=== PATIENT | female | born 1985 | race Caucasian/White ===

== ENCOUNTER 2016-10-26 21:48 | Emergency (ER) | payer OTHER ==
[~2016-10-26] VITALS: Ht 162.6 cm; Wt 44.5 kg
[~2016-10-26 21:48] MED LIST: AMOXIL500 MG PO; ATIVAN1 MG PO; BIAXIN500 MG PO; CARAFATE1 G1 PO; DICYCLOMINE10 MG PO; ELAVIL; ELAVIL25 M1 PO; LORAZEPAM2 M1; MYLANTA 360 ML360 ML PO; NORCO; NORCO 10/325 MG1 TAB PO; NORCO 5/325 MG1 TAB PO; PEPCID20 MG PO; PHENERGAN25 M3 PO; PRENATAL VITAMI1 T10 PO; PRILOSEC; PRILOSEC40 MG; PRILOSEC40 MG PO; REGLAN1 MG/ML PO; SEROQUEL25 MG; VICODIN 5/500 M1 TAB PO; ZANTAC150 MG PO; ZOFRAN; ZOFRAN ODT4 MG PO; ZOFRAN ODT4 MG SL; ZOFRAN4 M2 PO; ZYPREXA5 MG PO
[2016-10-26 22:02] VITALS: BP 113/77
--- NOTE | 2016-10-26 23:55 | NUR ---
AMBULATED TO ER BED 4
[2016-10-27] MEDS ORDERED: KETOROLAC 30 MG/ML VIAL IM ONE (00:10)
[2016-10-27] MEDS ORDERED: NACL 0.9% 1,500 ML IV ONE (00:25)
[2016-10-27] MEDS ORDERED: HYDROcodone/APAP 5/325 MG 1 TAB TAB PO ONE ×2 (00:25→03:20)
--- NOTE | 2016-10-27 00:48 | NUR ---
IV 20GA LT A/C DONE, BLOOD SENT TO LAB. CT WITH CONTRAST SIGNED BY PT [email or web address].
--- NOTE | 2016-10-27 00:50 | NUR ---
CALLED CT NOTIFTED PT WAS READY FOR CT SCAN.
[2016-10-27] MEDS ORDERED: ONDANSETRON 4 MG/2 ML VIAL IVP ONE (01:55)
[2016-10-27] MEDS ORDERED: cefTRIAXone 1,000 MG VIAL ONE (02:24)
[2016-10-27] MEDS ORDERED: LORazepam 2 MG/ML VIAL IVP ONE (02:35)
[2016-10-27] MEDS ORDERED: AZITHROMYCIN 250 MG TAB PO ONE (03:20)
--- NOTE | 2016-10-27 03:28 | NUR ---
Female [employer] Clerk accompanied female patient for Pelvic Exam.
--- NOTE | 2016-10-27 03:29 | NUR ---
FAMILY BACK AT BEDSIDE
--- NOTE | 2016-10-27 03:29 | NUR ---
VAG SWAB X 3 SENT TO LAB.
--- NOTE | 2016-10-27 04:13 | NUR ---
Patient discharged with v/s stable. Written and verbal after care instructions given and explained. Patient alert, oriented and verbalized understanding of instructions. Ambulatory with steady gait. All questions addressed prior to discharge. ID band removed. Patient advised to follow up with PMD. Rx of NORCO, DOXYCYCLINE, FLAGYL, CIPRO given. Patient educated on indication of medication including possible reaction and side effects. Opportunity to ask questions provided and answered.
[2016-10-27 04:16] VITALS: BP 121/78
[2016-10-27] MEDS ORDERED: [UNRECOGNIZED DRUG - CODE] PO (17:55)
== END 2016-10-27 04:13 | disposition home or self-care (01) ==
LOC: MED 21:48
DX: N12 Tubulo-interstitial nephritis, not specified as acute or chronic (principal); N76.0 Acute vaginitis; N73.9 Female pelvic inflammatory disease, unspecified; J45.909 Unspecified asthma, uncomplicated; K21.9 Gastro-esophageal reflux disease without esophagitis; Z88.5 Allergy status to narcotic agent; Z88.8 Allergy status to other drugs, medicaments and biological substances
CPT/HCPCS: 36415; 74177; 80053; 81001; 81025; 85025; 87086; 87210; 87491; 96361; 96365; 96372; 96375; 99285; J0696; J1885; J2060; J2405; Q9967

== ENCOUNTER 2016-10-27 17:40 | Emergency (ER) | payer OTHER ==
[~2016-10-27] VITALS: Ht 162.6 cm; Wt 44.5 kg
[2016-10-27 17:51] VITALS: BP 119/73
[2016-10-27] MEDS ORDERED: [UNRECOGNIZED DRUG - CODE] PO (17:55)
--- NOTE | 2016-10-27 19:22 | NUR ---
Patient ambulated to bed 8. RN evaluating patient at bedside.
--- NOTE | 2016-10-27 19:47 | NUR ---
PATIENT PRESENTS TO ED WITH VOMITTING AFTER TAKING ABX'S . PT STATES DENIES D; SKIN IS PINK/WARM/DRY; AAOX4 WITH EVEN AND STEADY GAIT; LUNGS CLEAR BL; HR EVEN AND REGULAR; PT DENIES ANY FEVER, CP, SOB, OR COUGH AT THIS TIME; PATIENT STATES PAIN OF 8/10 AT THIS TIME; VSS; PATIENT POSITIONED FOR COMFORT; HOB ELEVATED; BEDRAILS UP X2; BED DOWN. ER MD MADE AWARE OF PT STATUS.
[2016-10-27] MEDS ORDERED: NACL 0.9% 1,000 ML IV ONE (20:32)
[2016-10-27] MEDS ORDERED: ONDANSETRON 4 MG/2 ML VIAL IVP ONE (20:35)
[2016-10-27] MEDS ORDERED: HYDROmorphone 1 MG/ML AMP IVP ONE (20:35)
--- NOTE | 2016-10-27 21:10 | NUR ---
PIV STARTED, PT HANDS STATES SHE IS COLD, REDNESS NOTED ON BOTH ARMS AND CHEST. PT SHAKING. MADE AWARE.
--- NOTE | 2016-10-27 21:30 | NUR ---
OK TO DISCHARGE PT PER MD.
[2016-10-27 21:36] VITALS: BP 119/73
--- NOTE | 2016-10-27 22:08 | NUR ---
Patient discharged with v/s stable. Written and verbal after care instructions given and explained. Patient alert, oriented and verbalized understanding of instructions. Ambulatory with steady gait. All questions addressed prior to discharge. ID band removed. Patient advised to follow up with PMD. Rx of METRONIDDAZOLE 0.75% BID given. Patient educated on indication of medication including possible reaction and side effects. Opportunity to ask questions provided and answered.
== END 2016-10-27 21:36 | disposition home or self-care (01) ==
LOC: MED 17:45
PROC: 3E033GC Introduction of Other Therapeutic Substance into Peripheral Vein, Percutaneous Approach (ICD-10-PCS; principal; 2016-10-27)
DX: R11.2 Nausea with vomiting, unspecified (principal); N76.0 Acute vaginitis; B96.89 Other specified bacterial agents as the cause of diseases classified elsewhere
CPT/HCPCS: 81001; 81025; 96374; 96375; 99284; J1170; J2405; J7030

== ENCOUNTER 2016-11-05 09:46 | Emergency (ER) | payer OTHER ==
[~2016-11-05] VITALS: Ht 162.6 cm; Wt 43.5 kg
[~2016-11-05 09:46] MED LIST changes: +[UNRECOGNIZED DRUG - CODE] PO
[2016-11-05] MEDS ORDERED: ATIVAN1 M1 PO (10:13)
[2016-11-05] MEDS ORDERED: DOXYCYCLINE HY100 M9 PO (10:13)
[2016-11-05] MEDS ORDERED: CIPRO250 M2 PO (10:13)
[2016-11-05 10:14] VITALS: BP 103/69
--- NOTE | 2016-11-05 10:23 | NUR ---
Patient ambulated to bed 03.
--- NOTE | 2016-11-05 10:24 | NUR ---
PATIENT PRESENTS TO ED WITH WENT TO PRIMARY MD LAST SATURDAY FOR REGULAR CHECK UP, ABDOMINAL PAIN WITH VOMITTING AND RIGHT BACK PAIN STARTED YESTERDAY, TOOK DOXYCYCLINE 100MG THIS MORNING HX CHRONIC GASTRITIS, GASTROPARESIS, HIATAL HERNIA, REMOVAL OF GALLBLADDER,H PYLORIHX BLADDER INFECTION AND KIDNEY INFECTION . PT DENIES DIARRHEA; SKIN IS PINK/WARM/DRY; AAOX4 WITH EVEN AND STEADY GAIT; LUNGS CLEAR BL; HR EVEN AND REGULAR; PT DENIES ANY FEVER, CP, SOB, OR COUGH AT THIS TIME; PATIENT STATES PAIN OF 9/10 AT THIS TIME; VSS; PATIENT POSITIONED FOR COMFORT; HOB ELEVATED; BEDRAILS UP X2; BED DOWN. ER MD MADE AWARE OF PT STATUS.
--- NOTE | 2016-11-05 10:26 | NUR ---
Dr. Capps evaluating patient at bedside.
[2016-11-05] MEDS ORDERED: ONDANSETRON 4 MG/2 ML VIAL IVP ONE (10:35)
[2016-11-05] MEDS ORDERED: NACL 0.9% 1,000 ML IV ONE (10:35)
[2016-11-05] MEDS ORDERED: HYDROmorphone 1 MG/ML AMP IVP ONE (10:35)
--- NOTE | 2016-11-05 13:11 | NUR ---
Patient discharged with v/s stable. Written and verbal after care instructions given and explained. Patient alert, oriented and verbalized understanding of instructions. Ambulatory with to car. All questions addressed prior to discharge. ID band removed. Patient advised to follow up with PMD. Rx of TRAMADOL 50 MG given. Patient educated on indication of medication including possible reaction and side effects. Opportunity to ask questions provided and answered.
[2016-11-05 13:12] VITALS: BP 110/60
== END 2016-11-05 13:11 | disposition home or self-care (01) ==
LOC: MED 09:49
DX: R10.31 Right lower quadrant pain (principal); R11.2 Nausea with vomiting, unspecified; J45.909 Unspecified asthma, uncomplicated; K21.9 Gastro-esophageal reflux disease without esophagitis; Z88.5 Allergy status to narcotic agent; Z88.8 Allergy status to other drugs, medicaments and biological substances
CPT/HCPCS: 36415; 74176; 76856; 80053; 81001; 81025; 82150; 83690; 85025; 85610; 85730; 96361; 96374; 96375; 99285; J1170; J2405; J7030; Q0092

== ENCOUNTER 2017-04-03 17:59 | Emergency (ER) | payer OTHER ==
[~2017-04-03] VITALS: Ht 162.6 cm; Wt 49.9 kg
[~2017-04-03 17:59] MED LIST changes: -AMOXIL500 MG PO; -ATIVAN1 MG PO; -BIAXIN500 MG PO; -CARAFATE1 G1 PO; +CIPR250T3 PO; -DICYCLOMINE10 MG PO; +DOXY-441 PO; +ELA25 PO; -ELAVIL; -ELAVIL25 M1 PO; +LORA-476 PO; -LORAZEPAM2 M1; -MYLANTA 360 ML360 ML PO; -NORCO; -NORCO 10/325 MG1 TAB PO; -NORCO 5/325 MG1 TAB PO; +ONDA4ODT1 SL; -PEPCID20 MG PO; -PHENERGAN25 M3 PO; -PRENATAL VITAMI1 T10 PO; -PRILOSEC; -PRILOSEC40 MG; -PRILOSEC40 MG PO; +PROM25TA85 PO; +RANI150T15 PO; -REGLAN1 MG/ML PO; -SEROQUEL25 MG; -VICODIN 5/500 M1 TAB PO; -ZANTAC150 MG PO; -ZOFRAN; -ZOFRAN ODT4 MG PO; -ZOFRAN ODT4 MG SL; -ZOFRAN4 M2 PO; -ZYPREXA5 MG PO; -[UNRECOGNIZED DRUG - CODE] PO
[2017-04-03 18:43] VITALS: BP 114/97
--- NOTE | 2017-04-03 19:12 | NUR ---
PTAMBULATED TO BED 6.
[2017-04-03 19:13] LABS: BASOPHILS # (AUTO) 0.2 K/uL (0.00-0.22); EOSINOPHILS # (AUTO) 0.1 K/uL (0-0.4); EOSINOPHILS % (AUTO) 1.4 % (0.0-4.0); HEMATOCRIT 49.2 % (36-48); HEMOGLOBIN 16.1 g/dL (12.0-16.0); LYMPHOCYTES # (AUTO) 1.3 K/uL (2.5-16.5); LYMPHOCYTES % (AUTO) 12.9 % (20.5-51.1); MEAN CORPUSCULAR HEMOGLOBIN 28 pg (27-31); MEAN CORPUSCULAR HGB CONC 33 g/dL (33-37); MEAN CORPUSCULAR VOLUME 85 fL (80-94); MONOCYTES # (AUTO) 0.5 K/uL (0.8-1.0); MONOCYTES % (AUTO) 5.3 % (1.7-9.3); NEUTROPHILS # (AUTO) 7.9 K/uL (1.8-7.7); NEUTROPHILS % (AUTO) 78.4 % (42.2-75.2); PLATELET COUNT (AUTO) 209 K/uL (140-450); RED BLOOD CELL COUNT(AUTO) 5.76 MIL/uL (4.20-5.40); RED CELL DISTRIBUTION WIDTH 13.2 % (11.6-13.7)
[2017-04-03 19:18] LABS: ANION GAP 16.2 (8-16); CALCIUM 9.4 mg/dL (8.5-10.1); CARBON DIOXIDE 25.8 mmol/L (21-32)
[2017-04-03 19:24] LABS: ALBUMIN 5.2 g/dL (3.4-5.0); TOTAL BILIRUBIN 0.9 mg/dL (0.0-1.0); TOTAL PROTEIN, SERUM 8.9 g/dL (6.4-8.2)
[2017-04-03] MEDS ORDERED: NACL 0.9% 1,000 ML IV ONE (19:30)
[2017-04-03] MEDS ORDERED: fentaNYL 0.05 MG/ML VIAL IVP ONE (19:30)
[2017-04-03] MEDS ORDERED: ONDANSETRON 4 MG/2 ML VIAL IVP ONE (19:30)
--- NOTE | 2017-04-03 19:30 | NUR ---
PATIENT PRESENTS TO ED WITH c/o abd pain, nausea and vomitting . PT SKIN IS PINK/WARM/DRY; AAOX4 WITH EVEN AND STEADY GAIT; LUNGS CLEAR BL; HR EVEN AND REGULAR; PT DENIES ANY FEVER, CP, SOB, OR COUGH AT THIS TIME; PATIENT STATES PAIN OF 10/10 AT THIS TIME; VSS; PATIENT POSITIONED FOR COMFORT; HOB ELEVATED; BEDRAILS UP X2; BED DOWN. ER MD MADE AWARE OF PT STATUS.
[2017-04-03] MEDS ORDERED: POTASSIUM CHLORIDE 10 MEQ TABER PO ONE (20:10)
[2017-04-03] MEDS ORDERED: MAGNESIUM OXIDE 400 MG TAB PO ONE (20:30)
[2017-04-03] MEDS ORDERED: LORazepam 1 MG TAB PO ONE (20:30)
--- NOTE | 2017-04-03 20:47 | NUR ---
called assistant housekeeping manager regarding pyxis being out of mag ox
[2017-04-03] MEDS ORDERED: MAGNESIUM OXIDE 400 MG TAB ONE (21:08)
[2017-04-03 21:20] VITALS: BP 110/85
--- NOTE | 2017-04-03 21:29 | NUR ---
Patient discharged with v/s stable. Written and verbal after care instructions given and explained. Patient alert, oriented and verbalized understanding of instructions. Ambulatory with steady gait. All questions addressed prior to discharge. ID band removed. Patient advised to follow up with PMD. Rx of tramadol and zofran given. Patient educated on indication of medication including possible reaction and side effects. Opportunity to ask questions provided and answered.
== END 2017-04-03 21:20 | disposition home or self-care (01) ==
LOC: MED 17:59
DX: K31.84 Gastroparesis (principal); R03.0 Elevated blood-pressure reading, without diagnosis of hypertension; J45.909 Unspecified asthma, uncomplicated; K21.9 Gastro-esophageal reflux disease without esophagitis; Z88.5 Allergy status to narcotic agent; Z88.9 Allergy status to unspecified drugs, medicaments and biological substances
CPT/HCPCS: 36415; 80053; 81025; 83690; 85025; 96361; 96374; 96375; 99285; J2405; J3010; J7030

== ENCOUNTER 2017-10-07 13:05 | Emergency (ER) | payer OTHER ==
[~2017-10-07] VITALS: Ht 162.6 cm; Wt 56.9 kg
[2017-10-07 13:14] VITALS: BP 105/72
[2017-10-07] MEDS ORDERED: NACL 0.9% 1,000 ML IV SCH (13:33)
--- NOTE | 2017-10-07 14:10 | NUR ---
PATIENT PRESENTS TO ED WITH RIGHT FLANK PAIN . PT STATES . DENIES N/V/D; SKIN IS PINK/WARM/DRY; AAOX4 WITH EVEN AND STEADY GAIT; LUNGS CLEAR BL; HR EVEN AND REGULAR; PT DENIES ANY FEVER, CP, SOB, OR COUGH AT THIS TIME; PATIENT STATES PAIN OF 6/10 AT THIS TIME; VSS; PATIENT POSITIONED FOR COMFORT; HOB ELEVATED; BEDRAILS UP X2; BED DOWN. ER MD MADE AWARE OF PT STATUS.
[2017-10-07] MEDS ORDERED: FAMOTIDINE 20 MG/2 ML VIAL IVP ONE (14:15)
[2017-10-07] MEDS ORDERED: diphenhydrAMINE 50 MG/ML VIAL IVP ONE (14:15)
[2017-10-07] MEDS ORDERED: HYDROmorphone PFS 2 MG/ML SYR IVP ONE (14:40)
[2017-10-07 14:53] LABS: ANION GAP 15.2 (8-16); CARBON DIOXIDE 24.6 mmol/L (21-32); CREATININE 0.8 mg/dL (0.6-1.3); POTASSIUM 3.8 mmol/L (3.5-5.1)
[2017-10-07 14:55] LABS: BILIRUBIN,URINE NEGATIVE (NEGATIVE); BLOOD, URINE NEGATIVE (NEGATIVE); COLOR,URINE YELLOW (YELLOW); LEUKOCYTE ESTERASE ,URINE TRACE (NEGATIVE); NITRITE, URINE NEGATIVE (NEGATIVE); UGLUCOSE NEGATIVE (NEGATIVE)
[2017-10-07 14:56] LABS: APPEARANCE,URINE HAZY (CLEAR)
[2017-10-07 14:59] LABS: ALBUMIN 3.9 g/dL (3.4-5.0); TOTAL BILIRUBIN 0.5 mg/dL (0.0-1.0)
[2017-10-07 15:09] LABS: RBC,URINE NONE SEEN /HPF (0-5)
[2017-10-07 15:10] LABS: PROTHROMBIN TIME 10.7 secs (10.8-13.4)
[2017-10-07 15:10] LABS: WBC,URINE 0-5 (RARE) /HPF (0-5)
[2017-10-07 15:15] LABS: BASOPHILS # (AUTO) 0.2 K/uL (0.00-0.22); EOSINOPHILS # (AUTO) 0.1 K/uL (0-0.4); HEMATOCRIT 38.9 % (36-48); HEMOGLOBIN 13.5 g/dL (12.0-16.0); LYMPHOCYTES # (AUTO) 1.2 K/uL (2.5-16.5); MEAN CORPUSCULAR HEMOGLOBIN 30 pg (27-31); MEAN CORPUSCULAR HGB CONC 35 g/dL (33-37); MEAN CORPUSCULAR VOLUME 86 fL (80-94); MONOCYTES # (AUTO) 0.5 K/uL (0.8-1.0); NEUTROPHILS # (AUTO) 3.8 K/uL (1.8-7.7); PLATELET COUNT (AUTO) 153 K/uL (140-450); RED BLOOD CELL COUNT(AUTO) 4.53 MIL/uL (4.20-5.40); RED CELL DISTRIBUTION WIDTH 12.4 % (11.6-13.7); WHITE BLOOD COUNT (AUTO) 5.8 K/uL (4.8-10.8)
[2017-10-07] MEDS ORDERED: ONDANSETRON 4 MG/2 ML VIAL IVP ONE (15:25)
--- NOTE | 2017-10-07 15:39 | NUR ---
MEDICATED FOR NAUSEA---PT ALSO C/O EPIGASTRIC KNOT SENSATION PAIN-- HEEL WARMER APPLIED TO AREA FOR COMFORT
[2017-10-07] MEDS ORDERED: LIDOCAINE VISCOUS 2% 20 ML UDC PO ONE (16:05)
[2017-10-07] MEDS ORDERED: DICYCLOMINE HCL LIQUID 10 MG/5 ML UDC PO ONE (16:05)
[2017-10-07] MEDS ORDERED: ALUMINUM HYD/MAG/SIMETHICONE 30 ML UDC PO ONE (16:05)
--- NOTE | 2017-10-07 17:08 | NUR ---
MD SPOKE WITH PT AT BEDSIDE---BOTH AGREED OKAY TO DC HOME- PT TO F/U WITH PMD NEXT 2-3 DAYS, IF SYMPTOMS WORSEN RETURN TO ER BOTH DISCUSSED ABOUT RX AT DC.
[2017-10-07 17:36] VITALS: BP 117/64
--- NOTE | 2017-10-07 17:37 | NUR ---
Patient discharged with v/s stable. Written and verbal after care instructions given and explained. Patient alert, oriented and verbalized understanding of instructions. Ambulatory with steady gait. All questions addressed prior to discharge. ID band removed. Patient advised to follow up with PMD. Rx of BENTYL/ZOFRAN/MAALOX/TYLENOL given. Patient educated on indication of medication including possible reaction and side effects. Opportunity to ask questions provided and answered.
== END 2017-10-07 17:37 | disposition home or self-care (01) ==
LOC: MED 13:05
DX: A08.4 Viral intestinal infection, unspecified (principal); K21.9 Gastro-esophageal reflux disease without esophagitis; J45.909 Unspecified asthma, uncomplicated; Z79.899 Other long term (current) drug therapy; Z88.5 Allergy status to narcotic agent; Z88.8 Allergy status to other drugs, medicaments and biological substances
CPT/HCPCS: 36415; 80053; 81001; 81025; 82150; 83605; 83690; 84703; 85025; 85610; 96361; 96374; 96375; 99285; J1170; J1200; J2405; J3490; J7030

== ENCOUNTER 2017-11-09 15:14 | Emergency (ER) | payer OTHER ==
[~2017-11-09] VITALS: Ht 160 cm; Wt 55.3 kg
[2017-11-09 15:26] VITALS: BP 90/67
--- NOTE | 2017-11-09 15:47 | NUR ---
PATIENT AMB. TO BED #2
--- NOTE | 2017-11-09 16:04 | NUR ---
ASSUMED PATIENT CARE, CONCUR WITH TRIAGE. NURSING ASSESSMENT COMPLETED. SEEN AND EVALUATED BY PROVIDER, MSE COMPLETED.
[2017-11-09] MEDS ORDERED: KETOROLAC 30 MG/ML VIAL IVP ONE (16:10)
[2017-11-09] MEDS ORDERED: NACL 0.9% 1,000 ML IV ONE (16:10)
[2017-11-09] MEDS ORDERED: ONDANSETRON 4 MG/2 ML VIAL IVP ONE (16:10)
[2017-11-09 17:00] LABS: BASOPHILS # (AUTO) 0.4 K/uL (0.00-0.22); EOSINOPHILS # (AUTO) 0.1 K/uL (0-0.4); HEMATOCRIT 45.8 % (36-48); HEMOGLOBIN 14.8 g/dL (12.0-16.0); LYMPHOCYTES # (AUTO) 1.9 K/uL (2.5-16.5); MEAN CORPUSCULAR HEMOGLOBIN 28 pg (27-31); MEAN CORPUSCULAR HGB CONC 32 g/dL (33-37); MEAN CORPUSCULAR VOLUME 88 fL (80-94); MONOCYTES # (AUTO) 0.8 K/uL (0.8-1.0); NEUTROPHILS # (AUTO) 4.6 K/uL (1.8-7.7); PLATELET COUNT (AUTO) 184 K/uL (140-450); RED BLOOD CELL COUNT(AUTO) 5.24 MIL/uL (4.20-5.40); RED CELL DISTRIBUTION WIDTH 12.7 % (11.6-13.7); WHITE BLOOD COUNT (AUTO) 7.8 K/uL (4.8-10.8)
--- NOTE | 2017-11-09 17:04 | NUR ---
IV ACCESS ESTABLISHED, LABS DRAWN, SENT TO LAB. DIAGNOSTIC TESTING INITIATED, AWAIT RESULTS AND DISPO.
[2017-11-09 17:55] LABS: APPEARANCE,URINE SL CLOUDY (CLEAR); BILIRUBIN,URINE 1+ (NEGATIVE); BLOOD, URINE 1+ (NEGATIVE); COLOR,URINE YELLOW (YELLOW); LEUKOCYTE ESTERASE ,URINE TRACE (NEGATIVE); NITRITE, URINE NEGATIVE (NEGATIVE); PH,URINE 6.5 (5.0-9.0); UGLUCOSE 1+ (NEGATIVE)
[2017-11-09 17:57] LABS: RBC,URINE 3-10 (FEW) /HPF (0-5); WBC,URINE 6-15 (FEW) /HPF (0-5)
--- NOTE | 2017-11-09 18:07 | NUR ---
MAINTAINED SAFETY PRECAUTIONS AND VS MONITORING, AWAIT DISPO AND MEDICAL DECISION MAKING.
[2017-11-09 18:12] LABS: ALBUMIN 4.3 g/dL (3.4-5.0); ANION GAP 21.3 (8-16); CARBON DIOXIDE 19.8 mmol/L (21-32); CREATININE 0.8 mg/dL (0.6-1.3); POTASSIUM 3.1 mmol/L (3.5-5.1); TOTAL BILIRUBIN 0.7 mg/dL (0.0-1.0)
[2017-11-09] MEDS ORDERED: POTASSIUM CHLORIDE 10 MEQ TABER PO ONE (18:25)
[2017-11-09] MEDS ORDERED: NITROFURANTOIN 100 MG CAP PO ONE (18:40)
[2017-11-09 19:08] VITALS: BP 101/76
--- NOTE | 2017-11-09 19:10 | NUR ---
DISPO AND MEDICAL DECISION MAKING DC HOME WITH INSTRUCTIONS AND PRESCRIPTIONS, UNDERSTOOD BY PATIENT WELL. ENDORSING RELIEF FROM SYMPTOMS, VSWNL. DC AMBULATORY, IV DC'D.
[2017-11-10] MEDS ORDERED: NITROFURANTOIN 100 MG CAP PO SCH (08:00)
== END 2017-11-09 19:10 | disposition home or self-care (01) ==
LOC: MED 15:14
DX: O23.41 Unspecified infection of urinary tract in pregnancy, first trimester (principal); J45.909 Unspecified asthma, uncomplicated; K21.9 Gastro-esophageal reflux disease without esophagitis; Z88.5 Allergy status to narcotic agent; Z88.8 Allergy status to other drugs, medicaments and biological substances
CPT/HCPCS: 36415; 76770; 76801; 80053; 81001; 81025; 84702; 85025; 86900; 86901; 87086; 96361; 96374; 96375; 99285; J1885; J2405; J7030; Q0092

== ENCOUNTER 2018-01-08 16:32 | Emergency (ER) | payer OTHER ==
[~2018-01-08] VITALS: Ht 162.6 cm; Wt 60.3 kg
[2018-01-08 16:56] VITALS: BP 131/68
[2018-01-08] MEDS ORDERED: KETOROLAC 30 MG/ML VIAL IVP ONE (18:45)
[2018-01-08] MEDS ORDERED: NACL 0.9% 1,000 ML IV ONE ×2 (18:45→20:00)
[2018-01-08] MEDS ORDERED: ONDANSETRON 4 MG/2 ML VIAL IVP ONE ×2 (18:45→20:00)
[2018-01-08 19:19] LABS: BASOPHILS % (AUTO) 0.6 % (0.0-2.0); EOSINOPHILS # (AUTO) 0.1 K/uL (0-0.4); EOSINOPHILS % (AUTO) 0.8 % (0.0-4.0); HEMATOCRIT 43.5 % (36-48); HEMOGLOBIN 14.4 g/dL (12.0-16.0); LYMPHOCYTES # (AUTO) 1.7 K/uL (2.5-16.5); LYMPHOCYTES % (AUTO) 23.6 % (20.5-51.1); MEAN CORPUSCULAR HEMOGLOBIN 29 pg (27-31); MEAN CORPUSCULAR HGB CONC 33 g/dL (33-37); MEAN CORPUSCULAR VOLUME 87.3 fL (80-94); MONOCYTES # (AUTO) 0.6 K/uL (0.8-1.0); MONOCYTES % (AUTO) 7.9 % (1.7-9.3); NEUTROPHILS # (AUTO) 4.8 K/uL (1.8-7.7); NEUTROPHILS % (AUTO) 67.1 % (42.2-75.2); PLATELET COUNT (AUTO) 162 K/uL (140-450); RED BLOOD CELL COUNT(AUTO) 4.98 MIL/uL (4.20-5.40); RED CELL DISTRIBUTION WIDTH 13.7 % (11.6-13.7); WHITE BLOOD COUNT (AUTO) 7.2 K/uL (4.8-10.8)
[2018-01-08 19:24] LABS: BILIRUBIN,URINE NEGATIVE (NEGATIVE); BLOOD, URINE NEGATIVE (NEGATIVE); COLOR,URINE YELLOW (YELLOW); LEUKOCYTE ESTERASE ,URINE 2+ (NEGATIVE); NITRITE, URINE NEGATIVE (NEGATIVE); UGLUCOSE NEGATIVE (NEGATIVE)
[2018-01-08 19:25] LABS: APPEARANCE,URINE SLIGHTLY HAZY (CLEAR)
[2018-01-08 19:25] LABS: ANION GAP 17.3 (8-16); CARBON DIOXIDE 23.2 mmol/L (21-32); CREATININE 0.7 mg/dL (0.6-1.3); POTASSIUM 3.5 mmol/L (3.5-5.1)
[2018-01-08 19:32] LABS: ALBUMIN 4.5 g/dL (3.4-5.0); TOTAL BILIRUBIN 0.5 mg/dL (0.0-1.0)
[2018-01-08 19:35] LABS: PROTHROMBIN TIME 10.4 secs (10.8-13.4)
[2018-01-08 19:44] LABS: RBC,URINE NONE SEEN /HPF (0-5); WBC,URINE 0-5 (RARE) /HPF (0-5)
[2018-01-08] MEDS ORDERED: LORazepam 2 MG/ML VIAL IVP ONE (20:00)
[2018-01-08] MEDS ORDERED: cefTRIAXone 1,000 MG VIAL ONE (21:01)
[2018-01-08 22:05] VITALS: BP 123/72
== END 2018-01-08 22:05 | disposition home or self-care (01) ==
LOC: MED 16:32
DX: N12 Tubulo-interstitial nephritis, not specified as acute or chronic (principal); K21.9 Gastro-esophageal reflux disease without esophagitis; J45.909 Unspecified asthma, uncomplicated; R03.0 Elevated blood-pressure reading, without diagnosis of hypertension; Z88.5 Allergy status to narcotic agent; Z88.8 Allergy status to other drugs, medicaments and biological substances
CPT/HCPCS: 36415; 76705; 80053; 81001; 83605; 85025; 85610; 85730; 87040; 87086; 96361; 96365; 96375; 96376; 99285; J0696; J1885; J2060; J2405; J7030; J7060; Q0092

== ENCOUNTER 2018-03-01 18:54 | Emergency (ER) | payer OTHER ==
[~2018-03-01] VITALS: Ht 162.6 cm; Wt 54.4 kg
[2018-03-01 19:09] VITALS: BP 144/69
--- NOTE | 2018-03-01 19:51 | NUR ---
PT AMBULATED TO ER BED 10
--- NOTE | 2018-03-01 19:51 | NUR ---
PATIENT PRESENTS TO ED WITH RETRACTABLE ABDOMINAL PAIN . PT STATES N/V WITH 10/10 RETRACTABLE ABD PAIN X2 DAYS; SKIN IS PINK/WARM/DRY; AAOX4 WITH EVEN AND STEADY GAIT; LUNGS CLEAR BL; HR EVEN AND REGULAR; PT DENIES ANY FEVER, CP, SOB, OR COUGH AT THIS TIME; PATIENT STATES PAIN OF 10/10 AT THIS TIME; VSS; PATIENT POSITIONED FOR COMFORT; HOB ELEVATED; BEDRAILS UP X2; BED DOWN. ER MD MADE AWARE OF PT STATUS. CONTINUE TO MONITOR.
[2018-03-01] MEDS ORDERED: ONDANSETRON 4 MG/2 ML VIAL ONE (20:10)
[2018-03-01] MEDS ORDERED: ONDANSETRON 4 MG/2 ML VIAL IVP ONE (20:30)
[2018-03-01 20:42] LABS: BASOPHILS % (AUTO) 0.4 % (0.0-2.0); EOSINOPHILS % (AUTO) 0.2 % (0.0-4.0); HEMATOCRIT 41.4 % (36-48); HEMOGLOBIN 13.6 g/dL (12.0-16.0); LYMPHOCYTES # (AUTO) 0.8 K/uL (2.5-16.5); LYMPHOCYTES % (AUTO) 7.5 % (20.5-51.1); MEAN CORPUSCULAR HEMOGLOBIN 29 pg (27-31); MEAN CORPUSCULAR HGB CONC 33 g/dL (33-37); MONOCYTES # (AUTO) 0.5 K/uL (0.8-1.0); MONOCYTES % (AUTO) 4.3 % (1.7-9.3); NEUTROPHILS # (AUTO) 9.2 K/uL (1.8-7.7); NEUTROPHILS % (AUTO) 87.6 % (42.2-75.2); PLATELET COUNT (AUTO) 156 K/uL (140-450); RED CELL DISTRIBUTION WIDTH 13.9 % (11.6-13.7); WHITE BLOOD COUNT (AUTO) 10.5 K/uL (4.8-10.8)
[2018-03-01] MEDS ORDERED: KETOROLAC 30 MG/ML VIAL IVP ONE (20:55)
[2018-03-01 20:59] LABS: ANION GAP 17.7 (8-16); CARBON DIOXIDE 20.6 mmol/L (21-32); CHLORIDE 104 mmol/L (98-107); CREATININE 0.8 mg/dL (0.6-1.3); GFR ARICAN-AMERICAN 108 mL/min (>90); GLUCOSE 141 mg/dL (74-106); POTASSIUM 3.3 mmol/L (3.5-5.1); SODIUM SERUM 139 mmol/L (136-145); UREA NITROGEN, BLOOD 17 mg/dL (7-18)
[2018-03-01 21:04] LABS: ALBUMIN 4.3 g/dL (3.4-5.0); ASPARTATE AMINOTRANSFERASE 18 U/L (15-37); LIPASE 141 U/L (73-393); TOTAL BILIRUBIN 0.7 mg/dL (0.0-1.0)
[2018-03-01] MEDS ORDERED: HALOPERIDOL IM 5 MG/ML VIAL IM ONE (21:10)
--- NOTE | 2018-03-01 21:25 | NUR ---
Straight cath performed. urine collected. pt tolerated procedure well. vss. continue to monitor.
[2018-03-01] MEDS ORDERED: LORazepam 2 MG/ML VIAL IVP ONE (21:35)
[2018-03-01 22:14] LABS: BARBITURATE, URINE NEG. ng/ml (NEG <=200); BENZODIAZEPINE, URINE NEG. ng/mL (NEG <=200); CANNABINOID, URINE POS. ng/mL (NEG <=50); COCAINE, URINE NEG. ng/mL (NEG <=300); OPIATE, URINE NEG. ng/mL (NEG <=2000); PHENCYCLIDINE SCREEN,URINE NEG. ng/mL (NEG <=25)
--- NOTE | 2018-03-01 22:20 | NUR ---
Jaxon askew in [facility] - 03/01/18 at 2223 by MEDRJJ PATIENT LEFT WITHOUT BEING SEEN BY . NO FURTHER CARE PROVIDED FOR PATIENT.
--- NOTE | 2018-03-01 22:24 | NUR ---
PT BACK FROM CT, MOVED TO BED9, FAMILY AT BEDSIDE
--- NOTE | 2018-03-01 22:39 | NUR ---
PT IN BED RESTING WITH EYES CLOSED. VSS. CONTINUE TO MONITOR.
[2018-03-01 23:22] VITALS: BP 144/69
--- NOTE | 2018-03-01 23:22 | NUR ---
Patient discharged with v/s stable. Written and verbal after care instructions given and explained. Patient verbalized understanding. Ambulatory with steady gait. All questions addressed prior to discharge. Advised to follow up with PMD.
== END 2018-03-01 23:22 | disposition home or self-care (01) ==
LOC: MED 18:54
DX: R11.2 Nausea with vomiting, unspecified (principal); R10.9 Unspecified abdominal pain; F12.90 Cannabis use, unspecified, uncomplicated; J45.909 Unspecified asthma, uncomplicated; K21.9 Gastro-esophageal reflux disease without esophagitis; Z90.49 Acquired absence of other specified parts of digestive tract; Z79.899 Other long term (current) drug therapy; Z88.5 Allergy status to narcotic agent; Z88.8 Allergy status to other drugs, medicaments and biological substances
CPT/HCPCS: 36415; 74022; 80053; 80305; 81002; 81025; 83690; 85025; 96372; 96374; 96375; 99285; G0482; J1630; J1885; J2060; J2405

== ENCOUNTER 2018-03-03 19:52 | Emergency (ER) | payer OTHER ==
[~2018-03-03] VITALS: Ht 162.6 cm; Wt 52.2 kg
[2018-03-03 20:20] VITALS: BP 135/102
[2018-03-03] MEDS ORDERED: NACL 0.9% 1,000 ML IV ONE (21:00)
[2018-03-03] MEDS ORDERED: PROMETHAZINE 25 MG/ML VIAL IVP ONE (21:00)
[2018-03-03] MEDS ORDERED: LORazepam 2 MG/ML VIAL IVP ONE (21:10)
[2018-03-03] MEDS ORDERED: KETOROLAC 30 MG/ML VIAL IVP ONE (21:10)
[2018-03-03] MEDS ORDERED: PANTOPRAZOLE 40 MG INJ VIAL IVP ONE (21:10)
[2018-03-03] MEDS ORDERED: FAMOTIDINE 20 MG/2 ML VIAL IVP ONE (21:40)
[2018-03-03 21:49] LABS: BASOPHILS % (AUTO) 0.5 % (0.0-2.0); HEMATOCRIT 42.1 % (36-48); HEMOGLOBIN 14.1 g/dL (12.0-16.0); LYMPHOCYTES % (AUTO) 14.8 % (20.5-51.1); MEAN CORPUSCULAR HEMOGLOBIN 29 pg (27-31); MEAN CORPUSCULAR HGB CONC 33 g/dL (33-37); MEAN CORPUSCULAR VOLUME 86.3 fL (80-94); MONOCYTES # (AUTO) 0.7 K/uL (0.8-1.0); MONOCYTES % (AUTO) 9.9 % (1.7-9.3); NEUTROPHILS # (AUTO) 4.9 K/uL (1.8-7.7); NEUTROPHILS % (AUTO) 74.8 % (42.2-75.2); PLATELET COUNT (AUTO) 195 K/uL (140-450); RED BLOOD CELL COUNT(AUTO) 4.88 MIL/uL (4.20-5.40); RED CELL DISTRIBUTION WIDTH 13.7 % (11.6-13.7); WHITE BLOOD COUNT (AUTO) 6.6 K/uL (4.8-10.8)
[2018-03-03 23:05] VITALS: BP 123/92
[2018-03-03 23:08] LABS: ALBUMIN 4.7 g/dL (3.4-5.0); ANION GAP 16.6 (8-16); CARBON DIOXIDE 24.4 mmol/L (21-32); CREATININE 0.8 mg/dL (0.6-1.3); TOTAL BILIRUBIN 0.9 mg/dL (0.0-1.0)
[2018-03-03 23:44] LABS: BARBITURATE, URINE NEG. ng/ml (NEG <=200); BENZODIAZEPINE, URINE NEG. ng/mL (NEG <=200); CANNABINOID, URINE POS. ng/mL (NEG <=50); COCAINE, URINE NEG. ng/mL (NEG <=300); OPIATE, URINE NEG. ng/mL (NEG <=2000); PHENCYCLIDINE SCREEN,URINE NEG. ng/mL (NEG <=25)
== END 2018-03-03 23:05 | disposition home or self-care (01) ==
LOC: MED 19:52
DX: K31.84 Gastroparesis (principal); E87.6 Hypokalemia; R11.2 Nausea with vomiting, unspecified; J45.909 Unspecified asthma, uncomplicated; K21.9 Gastro-esophageal reflux disease without esophagitis; Z90.49 Acquired absence of other specified parts of digestive tract; Z79.899 Other long term (current) drug therapy; Z88.8 Allergy status to other drugs, medicaments and biological substances
CPT/HCPCS: 36415; 80053; 80305; 81002; 81025; 83690; 85025; 96361; 96374; 96375; 99285; C9113; G0482; J1885; J2060; J2550; J3490; J7030

== ENCOUNTER 2018-03-04 04:40 | Emergency (ER) | payer OTHER ==
[~2018-03-04] VITALS: Ht 162.6 cm; Wt 52.7 kg
[2018-03-04 04:45] VITALS: BP 146/95
--- NOTE | 2018-03-04 04:48 | NUR ---
PT TAKEN TO BED 12
--- NOTE | 2018-03-04 04:50 | NUR ---
32/F CAME IN ED WITH MOTHER, C/O PERSISTENT N/V, UNABLE TO EAT X3 DAYS. PT REPORTS 7/10 EPIGASTRIC PAIN, RADIATING TO LOWER BACK. HX GASTRITIS, GASTROPARESIS, HPYLORI, GASTRIC ULCERS, HIATAL HERNIA. SKIN IS INTACT, PINK/WARM/DRY; AAOX4, PERRL, WITH EVEN AND STEADY GAIT; LUNGS CLEAR BL, BREATHING UNLABORED; HR EVEN AND REGULAR, BL PERIPHERAL PULSES PRESENT; ABD SOFT ROUND TENDER TO EPIGASTRIC AREA, DENIES LOWER QUADRANT TENDERNESS. PT DENIES ANY FEVER, CP, SOB AT THIS TIME; PATIENT POSITIONED FOR COMFORT; HOB ELEVATED; BEDRAILS UP X2; BED DOWN.
--- NOTE | 2018-03-04 05:04 | NUR ---
Dr. Webber evalauting patient at bedside.
[2018-03-04] MEDS ORDERED: ONDANSETRON 4 MG/2 ML VIAL IVP ONE (05:05)
[2018-03-04] MEDS ORDERED: KETAMINE 500 MG/5 ML VIAL IVP ONE ×2 (05:05→06:15)
--- NOTE | 2018-03-04 05:58 | NUR ---
ADMINISTERING 15MG KETAMINE IV MIXED IN 100ML NS FOR 15MINS ORDERED, INITIAL PAIN SCORE 7/10 AT THIS TIME, PT ON CARDIAC AND O2 MONITOR, WILL MONITOR PT STATUS
--- NOTE | 2018-03-04 06:16 | NUR ---
ADMINISTERING 15MG KETAMINE IV MIXED IN 100ML NS FOR 10MINS ORDERED, PAIN UNRELIEVED AT 8/10 AT THIS TIME, MD AWARE, PT ON CARDIAC AND O2 MONITOR, WILL MONITOR PT STATUS
--- NOTE | 2018-03-04 06:23 | NUR ---
Jaxon askew in [facility] - 03/04/18 at 0651 by JAZMÍN ADMINISTERING 15MG KETAMINE IV MIXED IN 100ML NS FOR 10MINS ORDERED, PAIN UNRELIEVED AT 8/10 AT THIS TIME, AWARE, PT ON CARDIAC AND O2 MONITOR, WILL MONITOR PT STATUS
[2018-03-04 06:44] VITALS: BP 117/82
--- NOTE | 2018-03-04 06:44 | NUR ---
Patient discharged with v/s stable. Written and verbal after care instructions given and explained. Patient alert, oriented and verbalized understanding of instructions. Ambulatory with steady gait. All questions addressed prior to discharge. ID band removed. Patient advised to follow up with PMD. Rx of PERCOGESIC given. Patient educated on indication of medication including possible reaction and side effects. Opportunity to ask questions provided and answered.
== END 2018-03-04 06:44 | disposition home or self-care (01) ==
LOC: MED 04:40
DX: K31.84 Gastroparesis (principal); R11.2 Nausea with vomiting, unspecified; J45.909 Unspecified asthma, uncomplicated; K21.9 Gastro-esophageal reflux disease without esophagitis; F12.10 Cannabis abuse, uncomplicated; Z88.8 Allergy status to other drugs, medicaments and biological substances
CPT/HCPCS: 96374; 96375; 99284; J2405

== ENCOUNTER 2018-03-05 07:51 | Emergency (ER) | payer OTHER ==
[~2018-03-05] VITALS: Ht 162.6 cm; Wt 54.1 kg
[2018-03-05 07:56] VITALS: BP 148/67
[2018-03-05] MEDS ORDERED: fentaNYL 0.05 MG/ML VIAL IVP ONE (08:10)
[2018-03-05] MEDS ORDERED: NACL 0.9% 1,000 ML IV SCH (08:10)
[2018-03-05] MEDS ORDERED: ONDANSETRON 4 MG/2 ML VIAL IVP ONE (08:10)
[2018-03-05 08:44] LABS: BASOPHILS # (AUTO) 0.1 K/uL (0.00-0.22); BASOPHILS % (AUTO) 1.2 % (0.0-2.0); EOSINOPHILS % (AUTO) 0.4 % (0.0-4.0); HEMATOCRIT 42.1 % (36-48); HEMOGLOBIN 14.1 g/dL (12.0-16.0); LYMPHOCYTES % (AUTO) 36.5 % (20.5-51.1); MEAN CORPUSCULAR HEMOGLOBIN 29 pg (27-31); MEAN CORPUSCULAR HGB CONC 33 g/dL (33-37); MEAN CORPUSCULAR VOLUME 87.2 fL (80-94); MONOCYTES # (AUTO) 0.5 K/uL (0.8-1.0); MONOCYTES % (AUTO) 8.9 % (1.7-9.3); NEUTROPHILS # (AUTO) 2.9 K/uL (1.8-7.7); PLATELET COUNT (AUTO) 158 K/uL (140-450); RED BLOOD CELL COUNT(AUTO) 4.83 MIL/uL (4.20-5.40); RED CELL DISTRIBUTION WIDTH 13.7 % (11.6-13.7); WHITE BLOOD COUNT (AUTO) 5.4 K/uL (4.8-10.8)
[2018-03-05] MEDS ORDERED: LORazepam 2 MG/ML VIAL IVP ONE (08:45)
[2018-03-05 09:19] LABS: ALBUMIN 4.4 g/dL (3.4-5.0); ANION GAP 15.5 (8-16); CARBON DIOXIDE 24.4 mmol/L (21-32); CREATININE 0.9 mg/dL (0.6-1.3)
[2018-03-05 09:24] LABS: POTASSIUM 2.9 mmol/L (3.5-5.1)
[2018-03-05] MEDS ORDERED: POTASSIUM CHLORIDE 10 MEQ TABER PO ONE (09:25)
[2018-03-05] MEDS ORDERED: KETOROLAC 30 MG/ML VIAL IVP ONE (09:30)
[2018-03-05 09:56] VITALS: BP 127/69
== END 2018-03-05 09:55 | disposition home or self-care (01) ==
LOC: MED 07:51
DX: R11.2 Nausea with vomiting, unspecified (principal); E87.6 Hypokalemia; R10.13 Epigastric pain; J45.909 Unspecified asthma, uncomplicated; K21.9 Gastro-esophageal reflux disease without esophagitis; F12.10 Cannabis abuse, uncomplicated; Z88.8 Allergy status to other drugs, medicaments and biological substances
CPT/HCPCS: 36415; 80053; 81002; 83690; 85025; 96361; 96374; 96375; 99284; J1885; J2060; J2405; J3010; J7030

== ENCOUNTER 2018-03-19 11:27 | Emergency (ER) | payer OTHER ==
[~2018-03-19] VITALS: Ht 162.6 cm; Wt 47.6 kg
[2018-03-19 11:43] VITALS: BP 144/107
--- NOTE | 2018-03-19 11:47 | NUR ---
Jaxon askew in [facility] - 03/19/18 at 1412 by MEDFL Patient being evaluated by physician at bedside.
--- NOTE | 2018-03-19 11:49 | NUR ---
PT AMBULATES TO BED 11
--- NOTE | 2018-03-19 11:50 | NUR ---
32Y/F BIB FRIEND C/O SHARP ABDOMNAL PAIN 10/10 RADIATING TO BACK X 2 DAYS, UNABLE TO KEEP FOOD OR LIQUID DOWN. PT REPORTS "MY GASTRITIS AN GASTROPARESIS." AAOX4 WITH EVEN AND STEADY GAIT; LUNGS CLEAR BL; PATIENT STATES PAIN OF 10/10 AT THIS TIME; VSS; PATIENT POSITIONED FOR COMFORT; HOB ELEVATED; BEDRAILS UP X1; BED DOWN. ER MD MADE AWARE OF PT STATUS.
[2018-03-19] MEDS ORDERED: ONDANSETRON 4 MG/2 ML VIAL IVP ONE (12:00)
[2018-03-19] MEDS ORDERED: MORPHINE SULFATE 2 MG/ML SYR IVP ONE (12:00)
[2018-03-19] MEDS ORDERED: FAMOTIDINE 20 MG/2 ML VIAL IVP ONE (12:00)
[2018-03-19] MEDS ORDERED: NACL 0.9% 1,000 ML IV ONE (12:00)
--- NOTE | 2018-03-19 12:00 | NUR ---
Patient being evaluated by physician at bedside.
[2018-03-19 12:58] LABS: BARBITURATE, URINE NEG. ng/ml (NEG <=200); BENZODIAZEPINE, URINE NEG. ng/mL (NEG <=200); CANNABINOID, URINE POS. ng/mL (NEG <=50); COCAINE, URINE NEG. ng/mL (NEG <=300); OPIATE, URINE POS. ng/mL (NEG <=2000); PHENCYCLIDINE SCREEN,URINE NEG. ng/mL (NEG <=25)
[2018-03-19 13:12] LABS: ACETAMINOPHEN < 0.5 ug/ml (10-30); SALICYLATE < 2.8 mg/dL (2.8-20.0)
[2018-03-19] MEDS ORDERED: LORazepam 2 MG/ML VIAL IVP ONE (13:20)
[2018-03-19 13:46] LABS: BASOPHILS % (AUTO) 0.4 % (0.0-2.0); EOSINOPHILS % (AUTO) 0.1 % (0.0-4.0); HEMATOCRIT 42.8 % (36-48); HEMOGLOBIN 14.5 g/dL (12.0-16.0); LYMPHOCYTES # (AUTO) 0.7 K/uL (2.5-16.5); LYMPHOCYTES % (AUTO) 12.3 % (20.5-51.1); MEAN CORPUSCULAR HEMOGLOBIN 29 pg (27-31); MEAN CORPUSCULAR HGB CONC 34 g/dL (33-37); MEAN CORPUSCULAR VOLUME 86.7 fL (80-94); MONOCYTES # (AUTO) 0.4 K/uL (0.8-1.0); MONOCYTES % (AUTO) 7.2 % (1.7-9.3); NEUTROPHILS # (AUTO) 4.4 K/uL (1.8-7.7); PLATELET COUNT (AUTO) 235 K/uL (140-450); RED BLOOD CELL COUNT(AUTO) 4.93 MIL/uL (4.20-5.40); RED CELL DISTRIBUTION WIDTH 13.8 % (11.6-13.7); WHITE BLOOD COUNT (AUTO) 5.5 K/uL (4.8-10.8)
[2018-03-19 13:51] LABS: ANION GAP 18.6 (8-16); CREATININE 1.1 mg/dL (0.6-1.3); POTASSIUM 3.6 mmol/L (3.5-5.1)
[2018-03-19 13:57] LABS: ALBUMIN 4.6 g/dL (3.4-5.0); TOTAL BILIRUBIN 0.7 mg/dL (0.0-1.0)
[2018-03-19 14:10] VITALS: BP 126/92
== END 2018-03-19 14:12 | disposition home or self-care (01) ==
LOC: MED 11:27
DX: K31.84 Gastroparesis (principal); K21.9 Gastro-esophageal reflux disease without esophagitis; J45.909 Unspecified asthma, uncomplicated; Z88.8 Allergy status to other drugs, medicaments and biological substances
CPT/HCPCS: 36415; 80053; 80305; 81025; 85025; 96361; 96374; 96375; 99284; G0480; G0482; J2060; J2270; J2405; J3490; J7030

== ENCOUNTER 2018-03-20 07:27 | Emergency (ER) | payer OTHER ==
[~2018-03-20] VITALS: Ht 162.6 cm; Wt 50.1 kg
[2018-03-20 07:37] VITALS: BP 141/103
[2018-03-20] MEDS: NACL 0.9% 1,000 ML IV ONE (09:13)
[2018-03-20] MEDS: diphenhydrAMINE 50 MG/ML VIAL IVP ONE (09:13)
[2018-03-20] MEDS: PROCHLORPERAZINE 10 MG/2 ML VIAL IVP ONE (09:14)
[2018-03-20] MEDS: KETOROLAC 15 MG/ML VIAL IVP ONE (09:14)
[2018-03-20 09:17] LABS: BASOPHILS % (AUTO) 0.5 % (0.0-2.0); EOSINOPHILS % (AUTO) 0.1 % (0.0-4.0); HEMATOCRIT 45.2 % (36-48); HEMOGLOBIN 15.5 g/dL (12.0-16.0); LYMPHOCYTES # (AUTO) 0.8 K/uL (2.5-16.5); LYMPHOCYTES % (AUTO) 12.5 % (20.5-51.1); MEAN CORPUSCULAR HEMOGLOBIN 29 pg (27-31); MEAN CORPUSCULAR HGB CONC 34 g/dL (33-37); MONOCYTES # (AUTO) 0.3 K/uL (0.8-1.0); MONOCYTES % (AUTO) 4.4 % (1.7-9.3); NEUTROPHILS # (AUTO) 5.3 K/uL (1.8-7.7); NEUTROPHILS % (AUTO) 82.5 % (42.2-75.2); PLATELET COUNT (AUTO) 199 K/uL (140-450); RED BLOOD CELL COUNT(AUTO) 5.26 MIL/uL (4.20-5.40); RED CELL DISTRIBUTION WIDTH 13.9 % (11.6-13.7); WHITE BLOOD COUNT (AUTO) 6.4 K/uL (4.8-10.8)
[2018-03-20 09:26] LABS: ANION GAP 18.5 (8-16); CARBON DIOXIDE 24.6 mmol/L (21-32); CREATININE 1.2 mg/dL (0.6-1.3); POTASSIUM 3.1 mmol/L (3.5-5.1)
[2018-03-20 09:32] LABS: ALBUMIN 4.7 g/dL (3.4-5.0); TOTAL BILIRUBIN 0.7 mg/dL (0.0-1.0)
[2018-03-20 09:53] LABS: BARBITURATE, URINE NEG. ng/ml (NEG <=200); BENZODIAZEPINE, URINE NEG. ng/mL (NEG <=200); CANNABINOID, URINE POS. ng/mL (NEG <=50); COCAINE, URINE NEG. ng/mL (NEG <=300); OPIATE, URINE NEG. ng/mL (NEG <=2000); PHENCYCLIDINE SCREEN,URINE NEG. ng/mL (NEG <=25)
[2018-03-20] MEDS: POTASSIUM CHLORIDE 10 MEQ TABER PO ONE (10:16)
[2018-03-20 13:11] VITALS: BP 137/76
== END 2018-03-20 13:12 | disposition home or self-care (01) ==
LOC: MED 07:27
DX: K31.84 Gastroparesis (principal); J45.909 Unspecified asthma, uncomplicated; K21.9 Gastro-esophageal reflux disease without esophagitis; F12.10 Cannabis abuse, uncomplicated; Z88.8 Allergy status to other drugs, medicaments and biological substances
CPT/HCPCS: 36415; 80053; 80305; 81002; 81025; 85025; 96361; 96374; 96375; 99284; J0780; J1200; J1885; J7030

== ENCOUNTER 2019-09-27 00:08 | Emergency (ER) | payer OTHER ==
[~2019-09-27] VITALS: Ht 162.6 cm; Wt 56.7 kg
[~2019-09-27 00:08] MED LIST changes: -DOXY-441 PO; +DOXY-487 PO; +ONDA-24 SL; -ONDA4ODT1 SL; +RANI-745 PO; -RANI150T15 PO
[2019-09-27 00:10] VITALS: BP 144/88
--- NOTE | 2019-09-27 00:13 | NUR ---
TO LOBBY A/W BED AMBULATORY
[2019-09-27] MEDS ORDERED: SODIUM CHLORIDE FLUSH 10 ML SYR IVF STA (00:43)
--- NOTE | 2019-09-27 00:53 | NUR ---
34 y/o female c/o lower abd and left quad pain x4 days. rates pain 10/10 and describes it as spasming. abd is flat,soft, and tenderness on left qauds, active bs. vomit (20+ x). no blood in urine or stool. preg 5-7weeks. had 1 full term , 6 pregancy, and 4 miscarriage. vss. allergies: reglan, morphione, cipro. pmh: gastritis, anxity, gastroparesis.
--- NOTE | 2019-09-27 00:53 | NUR ---
AMBULATED TO ER BED 12
[2019-09-27 01:05] LABS: BASOPHILS % (AUTO) 0.3 % (0.0-2.0); EOSINOPHILS % (AUTO) 0.1 % (0.0-4.0); HEMATOCRIT 44.1 % (36-48); HEMOGLOBIN 14.7 g/dL (12.0-16.0); LYMPHOCYTES % (AUTO) 6.8 % (20.5-51.1); MEAN CORPUSCULAR HEMOGLOBIN 30 pg (27-31); MEAN CORPUSCULAR HGB CONC 33 g/dL (33-37); MEAN CORPUSCULAR VOLUME 89.2 fL (80-94); MONOCYTES # (AUTO) 0.7 K/uL (0.8-1.0); MONOCYTES % (AUTO) 4.7 % (1.7-9.3); PLATELET COUNT (AUTO) 216 K/uL (140-450); RED BLOOD CELL COUNT(AUTO) 4.94 MIL/uL (4.20-5.40); WHITE BLOOD COUNT (AUTO) 14.7 K/uL (4.8-10.8)
[2019-09-27] MEDS ORDERED: fentaNYL 0.05 MG/ML VIAL IVP ONE ×2 (01:15→02:30)
[2019-09-27 01:17] LABS: APPEARANCE,URINE CLOUDY (CLEAR); BILIRUBIN,URINE 1+ (NEGATIVE); BLOOD, URINE TRACE-I (NEGATIVE); COLOR,URINE YELLOW (YELLOW); LEUKOCYTE ESTERASE ,URINE TRACE (NEGATIVE); NITRITE, URINE NEGATIVE (NEGATIVE); PH,URINE 6.5 (5.0-9.0); UGLUCOSE NEGATIVE (NEGATIVE)
[2019-09-27] MEDS ORDERED: ONDANSETRON 4 MG/2 ML VIAL IVP ONE (01:25)
[2019-09-27 01:28] LABS: ALBUMIN 4.8 g/dL (3.4-5.0); ANION GAP 21.5 (8-16); CARBON DIOXIDE 21.4 mmol/L (21-32); CREATININE 0.8 mg/dL (0.6-1.3); TOTAL BILIRUBIN 0.9 mg/dL (0.0-1.0)
[2019-09-27 01:32] LABS: NEUTROPHILS % (AUTO) 88.1 % (42.2-75.2)
[2019-09-27 01:36] LABS: POTASSIUM 2.9 mmol/L (3.5-5.1)
[2019-09-27 01:41] LABS: RBC,URINE 0-5 /HPF (0-5)
[2019-09-27] MEDS ORDERED: LORazepam 2 MG/ML VIAL IVP ONE (02:20)
[2019-09-27] MEDS ORDERED: fentaNYL 0.05 MG/ML VIAL IM ONE (02:25)
[2019-09-27] MEDS ORDERED: KETOROLAC 30 MG/ML VIAL IVP ONE (04:00)
[2019-09-27] MEDS ORDERED: ACETAMINOPHEN/CODEINE 300/30MG 1 TAB PO ONE (05:05)
[2019-09-27 05:25] VITALS: BP 113/67
--- NOTE | 2019-09-27 05:25 | NUR ---
Patient discharged with v/s stable. Written and verbal after care instructions given and explained. Patient alert, oriented and verbalized understanding of instructions. Ambulatory with steady gait. All questions addressed prior to discharge. ID band removed. Patient advised to follow up with PMD. Rx of acetaminophen/codeine 300mg-30mg, and acetaminophen/codeine 300mg-15mg given. Patient educated on indication of medication including possible reaction and side effects. Opportunity to ask questions provided and answered.
== END 2019-09-27 05:25 | disposition home or self-care (01) ==
LOC: MED 00:08
DX: O23.11 Infections of bladder in pregnancy, first trimester (principal); N30.90 Cystitis, unspecified without hematuria; J45.909 Unspecified asthma, uncomplicated; K21.9 Gastro-esophageal reflux disease without esophagitis; Z79.899 Other long term (current) drug therapy; Z88.8 Allergy status to other drugs, medicaments and biological substances; Z3A.01 Less than 8 weeks gestation of pregnancy; Z88.5 Allergy status to narcotic agent; Z88.1 Allergy status to other antibiotic agents
CPT/HCPCS: 36415; 76801; 76817; 80053; 81001; 81025; 83690; 84702; 85025; 86900; 86901; 87086; 96374; 96375; 96376; 99284; J2060; J2405; J3010; Q0092

== ENCOUNTER 2021-04-13 08:28 | Emergency (ER) | payer OTHER ==
[~2021-04-13] VITALS: Ht 165.1 cm; Wt 81.2 kg
[~2021-04-13 08:28] MED LIST changes: +AMIT25TA39 PO; -ELA25 PO
[2021-04-13 08:30] VITALS: BP 132/91
--- NOTE | 2021-04-13 08:34 | NUR ---
Patient ambulated with steady gait to bed 4
--- NOTE | 2021-04-13 08:40 | NUR ---
36/F presents to ED with c/o abdominal pain, vomiting and anxiety. Patient states for 4 days she has been having worsening abdominal pain, with nausea and vomiting and anxiety. States she has had 3 episodes of vomiting today, denies taking anything for nausea or pain prior to arrival to ED. Patient states she has hx of anxiety and the abominal pain has been worsening her anxiety. Denies dysuria, hematuria, chest pain or shortness of breath. Patient placed in gown.
[2021-04-13] MEDS ORDERED: LORazepam 1 MG TAB PO ONE (08:55)
[2021-04-13] MEDS ORDERED: KETOROLAC 60 MG/2 ML VIAL IM ONE (08:55)
[2021-04-13] MEDS ORDERED: ONDANSETRON 4 MG ODT PO ONE (08:55)
[2021-04-13] MEDS ORDERED: IBUP-2213 PO (09:06)
[2021-04-13] MEDS ORDERED: ATA25 PO (09:06)
[2021-04-13] MEDS ORDERED: ONDA8TAB87 PO (09:06)
[2021-04-13] MEDS ORDERED: SULF-59 PO (09:19)
[2021-04-13] MEDS ORDERED: LORazepam 2 MG/ML VIAL IM ONE (09:55)
[2021-04-13] MEDS ORDERED: MORPHINE SULFATE 4 MG/ML SYR IM ONE (10:15)
[2021-04-13] MEDS ORDERED: diphenhydrAMINE 50 MG/ML VIAL IM ONE (10:15)
[2021-04-13 10:42] VITALS: BP 123/73
[2021-04-13] MEDS ORDERED: ACET-8386 PO (10:42)
--- NOTE | 2021-04-13 10:43 | NUR ---
Patient discharged with v/s stable. Written and verbal after care instructions given and explained. Patient alert, oriented and verbalized understanding of instructions. Ambulatory with steady gait. All questions addressed prior to discharge. ID band removed. Patient advised to follow up with PMD. Rx of Atarax, bactrim,ibuprofen, zofran and norco given. Patient educated on indication of medication including possible reaction and side effects. Opportunity to ask questions provided and answered.
== END 2021-04-13 10:43 | disposition home or self-care (01) ==
LOC: MED 08:28
DX: R10.13 Epigastric pain (principal); N39.0 Urinary tract infection, site not specified; R11.2 Nausea with vomiting, unspecified; R19.7 Diarrhea, unspecified; J45.909 Unspecified asthma, uncomplicated; K21.9 Gastro-esophageal reflux disease without esophagitis; Z79.899 Other long term (current) drug therapy; Z88.1 Allergy status to other antibiotic agents; Z88.5 Allergy status to narcotic agent; Z88.8 Allergy status to other drugs, medicaments and biological substances
CPT/HCPCS: 81002; 81025; 87086; 96372; 99284; J1200; J1885; J2060; J2270; Q0162

== ENCOUNTER 2021-04-13 16:59 | Emergency (ER) | payer OTHER ==
[~2021-04-13] VITALS: Ht 167.6 cm; Wt 65.8 kg
[~2021-04-13 16:59] MED LIST changes: +ACET-8386 PO; +ATA25 PO; +IBUP-2213 PO; +ONDA8TAB87 PO; +SULF-59 PO
[2021-04-13 17:04] VITALS: BP 116/58
--- NOTE | 2021-04-13 18:19 | NUR ---
PATIENT PRESENTS TO ED WITH ANXIETY AND ABD PAIN. PT STATES SHE WOULD LIKE TO HAVE A PRESCRIPTION FOR LORAZEPAM . DENIES N/V/D; SKIN IS PINK/WARM/DRY; AAOX4 WITH EVEN AND STEADY GAIT; LUNGS CLEAR BL; HR EVEN AND REGULAR; PT DENIES ANY FEVER, CP, SOB, OR COUGH AT THIS TIME; PATIENT STATES PAIN OF 3/10 AT THIS TIME; VSS; PATIENT DENIES ANY SI/HI AT THIS TIME.
[2021-04-13] MEDS ORDERED: LORazepam 2 MG/ML VIAL IM ONE (18:40)
--- NOTE | 2021-04-13 19:16 | NUR ---
d/c with VSS. d/c education given. opportunity to ask questions given and answered. no rx given.
== END 2021-04-13 19:16 | disposition home or self-care (01) ==
LOC: MED 16:59
DX: F41.0 Panic disorder [episodic paroxysmal anxiety] (principal); J45.909 Unspecified asthma, uncomplicated; K21.9 Gastro-esophageal reflux disease without esophagitis; Z88.1 Allergy status to other antibiotic agents; Z88.8 Allergy status to other drugs, medicaments and biological substances
CPT/HCPCS: 81002; 81025; 96372; 99283; J2060

== ENCOUNTER 2021-04-21 14:55 | Emergency (ER) | payer OTHER ==
[~2021-04-21] VITALS: Ht 162.6 cm; Wt 84.4 kg
--- NOTE | 2021-04-21 15:00 | NUR ---
JOSELUIS JACKSON VIA GURNEY TO BED 03.
[2021-04-21 15:01] VITALS: BP 154/99
--- NOTE | 2021-04-21 15:30 | NUR ---
36 YO F C/O LLQ PAIN FOR 10 DAYS AFTER EATING GREASY FOODS. VOMITING, 100CC BILE NOTED TO BARF BAG. SITTING CROSSLEGGED ON VALE PANDYA. DR. ALONZO AT BEDSIDE. PMH: HERNIA REPAIR ALLERGIES CIPRO, PROTONIX, REGLAN
[2021-04-21] MEDS ORDERED: KETAMINE 10 MG/ML UD SYR **ER IVP ONE (15:35)
[2021-04-21] MEDS ORDERED: HALOPERIDOL IM 5 MG/ML VIAL IVP ONE (15:35)
--- NOTE | 2021-04-21 15:45 | NUR ---
LAB AND RN AT BEDSIDE ATTEMPTING IV AND LABS, DIFFICULT ACCESS
--- NOTE | 2021-04-21 15:55 | NUR ---
TO CT VIA [facility].
--- NOTE | 2021-04-21 16:15 | NUR ---
CHARGE NURSE NOTIFIED OF INABILITY TO ACHIEVE IV ACCESS, 2ND NURSE TO ATTEMPT.
--- NOTE | 2021-04-21 16:32 | NUR ---
NOTIFIED REGARDING IV OR LAB ACCESS.
--- NOTE | 2021-04-21 16:47 | NUR ---
IJ IV ACCESS OBTAINED BY DR ALONZO
[2021-04-21] MEDS ORDERED: HALOPERIDOL IM 5 MG/ML VIAL ONE (16:49)
[2021-04-21 17:13] LABS: BASOPHILS # (AUTO) 0.1 K/uL (0.00-0.22); BASOPHILS % (AUTO) 0.7 % (0.0-2.0); EOSINOPHILS % (AUTO) 0.1 % (0.0-4.0); HEMATOCRIT 40.6 % (36-48); HEMOGLOBIN 13.5 g/dL (12.0-16.0); LYMPHOCYTES # (AUTO) 1.4 K/uL (2.5-16.5); LYMPHOCYTES % (AUTO) 11.9 % (20.5-51.1); MEAN CORPUSCULAR HEMOGLOBIN 29 pg (27-31); MEAN CORPUSCULAR HGB CONC 33 g/dL (33-37); MEAN CORPUSCULAR VOLUME 86.5 fL (80-94); MONOCYTES # (AUTO) 0.7 K/uL (0.8-1.0); MONOCYTES % (AUTO) 5.8 % (1.7-9.3); NEUTROPHILS # (AUTO) 9.7 K/uL (1.8-7.7); NEUTROPHILS % (AUTO) 81.5 % (42.2-75.2); PLATELET COUNT (AUTO) 273 K/uL (140-450); RED BLOOD CELL COUNT(AUTO) 4.69 MIL/uL (4.20-5.40); RED CELL DISTRIBUTION WIDTH 14.5 % (11.6-13.7); WHITE BLOOD COUNT (AUTO) 11.9 K/uL (4.8-10.8)
--- NOTE | 2021-04-21 17:15 | NUR ---
PATIENT COMPLAINS OF ANXIETY POST HALDOL AND KETAMINE. DR ALONZO NOTIFIED.
[2021-04-21 17:25] LABS: ALBUMIN 4.3 g/dL (3.4-5.0); CARBON DIOXIDE 23.2 mmol/L (21-32); CREATININE 0.8 mg/dL (0.6-1.3); POTASSIUM 3.2 mmol/L (3.5-5.1); TOTAL BILIRUBIN 0.6 mg/dL (0.0-1.0)
[2021-04-21] MEDS ORDERED: LORazepam 2 MG/ML VIAL IVP ONE (17:25)
--- NOTE | 2021-04-21 17:32 | NUR ---
MEDICATED WITH ATIVAN 2MG IVP, PATIENT CALMING.
--- NOTE | 2021-04-21 17:50 | NUR ---
PATIENT APPEARS TO BE SLEEPING VSS
[2021-04-21 18:01] LABS: APPEARANCE,URINE CLOUDY (CLEAR); BILIRUBIN,URINE 1+ (NEGATIVE); BLOOD, URINE 2+ (NEGATIVE); COLOR,URINE DARK YELLOW (YELLOW); LEUKOCYTE ESTERASE ,URINE 1+ (NEGATIVE); NITRITE, URINE NEGATIVE (NEGATIVE); UGLUCOSE NEGATIVE (NEGATIVE)
[2021-04-21 18:14] LABS: RBC,URINE 0-5 /HPF (0-5); WBC,URINE 0-5 /HPF (0-5)
[2021-04-21 18:15] LABS: CALCIUM OXALATE CRYSTALS,UR 0-10 /HPF (None Seen)
--- NOTE | 2021-04-21 18:51 | NUR ---
IJ ANGIOCATH REMOVED, PRESSURE DRESSING APPLIED. VS UPDATED, DISCHARGE INSTRUCTIONS PROVIDED. MOTHER IS EN ROUTE TO PROVIDE TRANSPORTATION AT HOME.
[2021-04-21 19:15] VITALS: BP 121/77
--- NOTE | 2021-04-21 19:18 | NUR ---
DURING DISCHARGE PROCESS OF GETTING HER TO A WHEELCHAIR, PATIENT ASKING FOR MORE PAIN MEDICATION. WILL NOTIFY MD OF PATIENT REQUEST.
--- NOTE | 2021-04-21 19:26 | NUR ---
PATIENT NOW WANTS TO LEAVE, MOTHER IS HERE, DISCHARGED VIA W/C
== END 2021-04-21 19:16 | disposition home or self-care (01) ==
LOC: MED 14:55
DX: K31.84 Gastroparesis (principal); F41.9 Anxiety disorder, unspecified; K21.9 Gastro-esophageal reflux disease without esophagitis; Z88.8 Allergy status to other drugs, medicaments and biological substances; Z79.899 Other long term (current) drug therapy
CPT/HCPCS: 36415; 74176; 80053; 81001; 81025; 83690; 85025; 87086; 96374; 96375; 99284; J1630; J2060

== ENCOUNTER 2021-04-23 19:01 | Emergency (ER) | payer OTHER ==
[~2021-04-23] VITALS: Ht 162.6 cm; Wt 81.6 kg
[2021-04-23 19:05] VITALS: BP 115/90
--- NOTE | 2021-04-23 19:05 | NUR ---
TO BED AMBULATORY
--- NOTE | 2021-04-23 19:20 | NUR ---
RECEIVED IN BED 4 WITH C/O A/P, 06/02 & ANXIETY 07/02 X 1 DAY. IS CRYING AND IS RESTLESS. PT ALSO STATES, VOMITED X TODAY. SKIN IS WARM AND DRY. UA GIVEN.
--- NOTE | 2021-04-23 19:34 | NUR ---
Dr. Bliss at bedside for exam
[2021-04-23] MEDS ORDERED: LORazepam 2 MG/ML VIAL IM ONE (19:40)
[2021-04-23] MEDS ORDERED: LORazepam 2 MG/ML VIAL ONE (19:45)
[2021-04-23] MEDS ORDERED: ACET-8386 PO (19:48)
[2021-04-23 20:01] VITALS: BP 115/90
--- NOTE | 2021-04-23 20:11 | NUR ---
Patient discharged with v/s stable. Written and verbal after care instructions given and explained. Patient alert, oriented and verbalized understanding of instructions. Ambulatory with steady gait. All questions addressed prior to discharge. ID band removed. Patient advised to follow up with PMD. Rx of HYDROCODONE given. Patient educated on indication of medication including possible reaction and side effects. Opportunity to ask questions provided and answered.
== END 2021-04-23 20:01 | disposition home or self-care (01) ==
LOC: MED 19:01
DX: F41.9 Anxiety disorder, unspecified (principal); R10.30 Lower abdominal pain, unspecified; F12.10 Cannabis abuse, uncomplicated; J45.909 Unspecified asthma, uncomplicated; K21.9 Gastro-esophageal reflux disease without esophagitis; Z88.5 Allergy status to narcotic agent; Z88.1 Allergy status to other antibiotic agents; Z88.8 Allergy status to other drugs, medicaments and biological substances
CPT/HCPCS: 81002; 81025; 96372; 99283; J2060

== ENCOUNTER 2021-04-28 13:18 | Emergency (ER) | payer OTHER ==
[~2021-04-28] VITALS: Ht 162.6 cm; Wt 74.8 kg
[2021-04-28 13:45] VITALS: BP 118/70
[2021-04-28] MEDS ORDERED: ATI.5 PO (14:39)
[2021-04-28 14:52] VITALS: BP 118/70
[2021-04-29] MEDS ORDERED: LORA-476 PO (18:07)
[2021-04-29] MEDS ORDERED: PANT40EC PO (18:07)
== END 2021-04-28 14:52 | disposition home or self-care (01) ==
LOC: MED 13:18
DX: F41.9 Anxiety disorder, unspecified (principal); R39.15 Urgency of urination; J45.909 Unspecified asthma, uncomplicated; K21.9 Gastro-esophageal reflux disease without esophagitis; Z90.49 Acquired absence of other specified parts of digestive tract; Z88.1 Allergy status to other antibiotic agents; Z88.5 Allergy status to narcotic agent; Z88.8 Allergy status to other drugs, medicaments and biological substances; Z79.899 Other long term (current) drug therapy
CPT/HCPCS: 81002; 81025; 99283

== ENCOUNTER 2021-04-29 14:25 | Emergency (ER) | payer OTHER ==
[~2021-04-29] VITALS: Ht 162.6 cm; Wt 75.0 kg
[~2021-04-29 14:25] MED LIST changes: +ATI.5 PO
[2021-04-29 14:46] VITALS: BP 120/81
[2021-04-29] MEDS ORDERED: NACL 0.9% 1,000 ML IV ONE (15:20)
[2021-04-29] MEDS ORDERED: fentaNYL citrate 0.05 MG/ML VIAL IVP ONE (15:20)
[2021-04-29] MEDS ORDERED: ALUMINUM HYD/MAG/SIMETHICONE 30 ML UDC PO ONE (15:25)
--- NOTE | 2021-04-29 15:38 | NUR ---
PT AMBULATED TO BED 09
--- NOTE | 2021-04-29 16:10 | NUR ---
RECEIVED PATIENT WITH SEVERE EPIGASTRIC ABDOMINAL PAIN, PATIENT REPORTS THAT SHE HAS HAD GASTROPARESIS FOR MANY YEARS. PAIN IS SEVERE TODAY C/O EPIGASTRIC PAIN , NAUSEA, DIARRHEA X 2 WEEKS WORSE IN PAST 3 DAYS. TOOK NORCO AT 10 AM TODAY. PMH: DEPRESSION, ANXIETY, GASTROPARESIS
[2021-04-29 16:55] LABS: BASOPHILS % (AUTO) 0.9 % (0.0-2.0); EOSINOPHILS % (AUTO) 0.9 % (0.0-4.0); HEMOGLOBIN 13.4 g/dL (12.0-16.0); LYMPHOCYTES # (AUTO) 2.1 K/uL (2.5-16.5); LYMPHOCYTES % (AUTO) 38.9 % (20.5-51.1); MEAN CORPUSCULAR HEMOGLOBIN 29 pg (27-31); MEAN CORPUSCULAR HGB CONC 34 g/dL (33-37); MEAN CORPUSCULAR VOLUME 85.1 fL (80-94); MONOCYTES # (AUTO) 0.5 K/uL (0.8-1.0); MONOCYTES % (AUTO) 9.3 % (1.7-9.3); NEUTROPHILS # (AUTO) 2.7 K/uL (1.8-7.7); PLATELET COUNT (AUTO) 217 K/uL (140-450); RED BLOOD CELL COUNT(AUTO) 4.58 MIL/uL (4.20-5.40); RED CELL DISTRIBUTION WIDTH 14.5 % (11.6-13.7); WHITE BLOOD COUNT (AUTO) 5.3 K/uL (4.8-10.8)
[2021-04-29 17:13] LABS: ALBUMIN 4.2 g/dL (3.4-5.0); ANION GAP 15.5 (8-16); CARBON DIOXIDE 23.1 mmol/L (21-32); CREATININE 0.9 mg/dL (0.6-1.3); POTASSIUM 3.6 mmol/L (3.5-5.1); TOTAL BILIRUBIN 0.4 mg/dL (0.0-1.0)
--- NOTE | 2021-04-29 17:25 | NUR ---
PATIENT REPORTS GOOD PAIN RELIEF, NOW C/O SEVERE ANXIETY, REQUESTING ATIVAN. DR MAGALLON UPDATED, ORDER RECEIVED.
[2021-04-29] MEDS ORDERED: LORazepam 1 MG TAB ONE (17:33)
[2021-04-29] MEDS ORDERED: LORazepam 1 MG TAB PO ONE (17:35)
[2021-04-29 17:41] VITALS: BP 135/79
[2021-04-29] MEDS ORDERED: LORA-476 PO (18:07)
[2021-04-29] MEDS ORDERED: PANT40EC PO (18:07)
== END 2021-04-29 18:15 | disposition home or self-care (01) ==
LOC: MED 14:25
DX: K29.70 Gastritis, unspecified, without bleeding (principal); K21.9 Gastro-esophageal reflux disease without esophagitis; Z90.49 Acquired absence of other specified parts of digestive tract; Z98.890 Other specified postprocedural states
CPT/HCPCS: 36415; 80053; 83690; 85025; 99284; J3010; J7030

== ENCOUNTER 2021-05-16 14:27 | Emergency (ER) | payer OTHER ==
[~2021-05-16] VITALS: Ht 162.6 cm; Wt 74.8 kg
[~2021-05-16 14:27] MED LIST changes: +PANT40EC PO
--- NOTE | 2021-05-16 14:27 | NUR ---
Patient BIBA to bed 6 at this time.
[2021-05-16 14:35] VITALS: BP 127/87
--- NOTE | 2021-05-16 14:35 | NUR ---
36 YEAR OLD FEMALE BIBA FROM HOME FOR UPPER ABDOMINAL PAIN X 4 DAYS. PT ALSO STATES NAUSEA, VOMITTING. PT STATES UTI DIAGNOSED COUPLE OF DAYS AGO BUT MEDICATIONS WERE NOT OBTAINED YET. PT ALSO STATES SHE HAD COLONOSCOPY IN MORNING THAT REVEALED SHE HAD GASTROPARESIS. PT PRESENTS WITH ABDOMINAL DISTENTION. PT AOX4, BREATHING EVEN AND UNLABORED, SKIN WARM AND DRY. BED IN LOWEST POSITION, LOCKED, BED RAIL UPX1. PT ON MONITOR. ERMD AWARE OF PT STATUS PMH - GASTRITIS, GERD, GASTROPARESIS ALLERGIES - MORPHINE, CIPRO, REGLAN, PROTONIX
[2021-05-16] MEDS: NACL 0.9% 1,000 ML IV ONE (15:31)
[2021-05-16] MEDS: KETAMINE 10 MG/ML UD SYR **ER IVP ONE (15:32)
[2021-05-16 15:45] LABS: BASOPHILS % (AUTO) 0.5 % (0.0-2.0); EOSINOPHILS # (AUTO) 0.1 K/uL (0-0.4); EOSINOPHILS % (AUTO) 1.6 % (0.0-4.0); HEMATOCRIT 36.8 % (36-48); HEMOGLOBIN 12.3 g/dL (12.0-16.0); LYMPHOCYTES # (AUTO) 1.4 K/uL (2.5-16.5); MEAN CORPUSCULAR HEMOGLOBIN 29 pg (27-31); MEAN CORPUSCULAR HGB CONC 34 g/dL (33-37); MEAN CORPUSCULAR VOLUME 86.4 fL (80-94); MONOCYTES # (AUTO) 0.4 K/uL (0.8-1.0); MONOCYTES % (AUTO) 6.2 % (1.7-9.3); NEUTROPHILS % (AUTO) 67.7 % (42.2-75.2); PLATELET COUNT (AUTO) 180 K/uL (140-450); RED BLOOD CELL COUNT(AUTO) 4.25 MIL/uL (4.20-5.40); RED CELL DISTRIBUTION WIDTH 14.5 % (11.6-13.7); WHITE BLOOD COUNT (AUTO) 5.9 K/uL (4.8-10.8)
--- NOTE | 2021-05-16 16:00 | NUR ---
PT RESTING WITH EYES CLOSED, BREATHING EVEN AND UNLABORED. NO DISTRESS NOTED AT THIS TIME
[2021-05-16 16:05] LABS: ALBUMIN 3.5 g/dL (3.4-5.0); ANION GAP 11.1 (8-16); CARBON DIOXIDE 26.9 mmol/L (21-32); CREATININE 0.8 mg/dL (0.6-1.3); TOTAL BILIRUBIN 0.4 mg/dL (0.0-1.0)
[2021-05-16] MEDS: HALOPERIDOL IM 5 MG/ML VIAL IVP ONE (16:10)
[2021-05-16] MEDS: ONDANSETRON 4 MG/2 ML VIAL IVP ONE (16:10)
[2021-05-16] MEDS: PROCHLORPERAZINE 10 MG/2 ML VIAL IVP ONE (16:10)
[2021-05-16 17:16] LABS: APPEARANCE,URINE CLEAR (CLEAR); BILIRUBIN,URINE NEGATIVE (NEGATIVE); BLOOD, URINE NEGATIVE (NEGATIVE); COLOR,URINE YELLOW (YELLOW); LEUKOCYTE ESTERASE ,URINE NEGATIVE (NEGATIVE); NITRITE, URINE NEGATIVE (NEGATIVE); UGLUCOSE NEGATIVE (NEGATIVE)
[2021-05-16] MEDS: LORazepam 2 MG/ML VIAL IVP ONE (17:21)
--- NOTE | 2021-05-16 19:14 | NUR ---
REPORT GIVEN TO ARNOLDO MILLARD, TRANSFER OF CARE AT THIS TIME
--- NOTE | 2021-05-16 19:14 | NUR ---
REPORT RECEIVED FROM VENICE IN FOR CONTINUATION OF PATIENT CARE AT THIS TIME.
--- NOTE | 2021-05-16 19:18 | NUR ---
PATIENT LAYING R LATERAL POSITION IN BED LOCKED IN LOWEST POSITION, X2 SIDERAILS UP FOR PATIENT SAFETY. PATIENT DENIES ANY PAIN OR NAUSEA AT THIS TIME. PATIENT REPORTS SHE FEELS ANXIOUS AND WOULD PREFER FURTHER NURSING ASSESSMENT BE DONE AT A LATER TIME. PROVIDED A BLANKET AND DIMMED ROOM LIGHTS FOR PATIENT COMFORT. PATIENT CONNECTED TO MONITOR W VSS.
[2021-05-16] MEDS ORDERED: PROC-62 PO (20:13)
--- NOTE | 2021-05-16 20:35 | NUR ---
PER ERMD, PATIENT OK FOR DISCHARGE W/O BLOOD CULTURE RESULTS BACK AT THIS TIME.
[2021-05-16 20:51] VITALS: BP 108/71
--- NOTE | 2021-05-16 20:51 | NUR ---
Patient discharged with v/s stable. Written and verbal after care instructions given and explained. Patient alert, oriented and verbalized understanding of instructions. Ambulatory with steady gait. All questions addressed prior to discharge. ID band removed. Patient advised to follow up with PMD. Rx of COMPAZINE given. Patient educated on indication of medication including possible reaction and side effects. Opportunity to ask questions provided and answered.
== END 2021-05-16 20:51 | disposition home or self-care (01) ==
LOC: MED 14:27
DX: K31.84 Gastroparesis (principal); J45.909 Unspecified asthma, uncomplicated; K21.9 Gastro-esophageal reflux disease without esophagitis
CPT/HCPCS: 36415; 74176; 80053; 81003; 81025; 83605; 83690; 84702; 85025; 87040; 96374; 96375; 99284; J0780; J1630; J2060; J2405; J7030; 96361

== ENCOUNTER 2021-05-31 22:44 | Emergency (ER) | payer OTHER ==
[~2021-05-31] VITALS: Ht 162.6 cm; Wt 74.8 kg
[~2021-05-31 22:44] MED LIST changes: +PROC-62 PO
[2021-05-31 22:54] VITALS: BP 134/71
--- NOTE | 2021-05-31 23:58 | NUR ---
PATIENT EVALUATED BY ERMD IN TRIAGE.
--- NOTE | 2021-06-01 00:11 | NUR ---
PT TAKEN TO BED #3
[2021-06-01] MEDS ORDERED: NACL 0.9% 1,000 ML IV ONE (00:20)
[2021-06-01] MEDS ORDERED: KETOROLAC 30 MG/ML VIAL IVP ONE (00:20)
--- NOTE | 2021-06-01 00:30 | NUR ---
to xray with tech via wheel chair.
--- NOTE | 2021-06-01 01:00 | NUR ---
medicated as per ERMds order, tolerated well.IV to IM
[2021-06-01 01:02] LABS: BASOPHILS % (AUTO) 0.3 % (0.0-2.0); EOSINOPHILS # (AUTO) 0.1 K/uL (0-0.4); EOSINOPHILS % (AUTO) 1.1 % (0.0-4.0); HEMATOCRIT 40.6 % (36-48); HEMOGLOBIN 13.7 g/dL (12.0-16.0); LYMPHOCYTES # (AUTO) 1.1 K/uL (2.5-16.5); MEAN CORPUSCULAR HEMOGLOBIN 29 pg (27-31); MEAN CORPUSCULAR HGB CONC 34 g/dL (33-37); MEAN CORPUSCULAR VOLUME 86.2 fL (80-94); MONOCYTES # (AUTO) 0.5 K/uL (0.8-1.0); MONOCYTES % (AUTO) 5.7 % (1.7-9.3); NEUTROPHILS # (AUTO) 7.2 K/uL (1.8-7.7); NEUTROPHILS % (AUTO) 80.9 % (42.2-75.2); PLATELET COUNT (AUTO) 186 K/uL (140-450); RED BLOOD CELL COUNT(AUTO) 4.71 MIL/uL (4.20-5.40); RED CELL DISTRIBUTION WIDTH 14.2 % (11.6-13.7)
[2021-06-01 01:17] LABS: ANION GAP 16.1 (8-16); CARBON DIOXIDE 19.9 mmol/L (21-32); CREATININE 0.9 mg/dL (0.6-1.3); TOTAL BILIRUBIN 0.5 mg/dL (0.0-1.0)
[2021-06-01] MEDS ORDERED: POTASSIUM CHLORIDE 10 MEQ TABER PO ONE (01:35)
[2021-06-01] MEDS ORDERED: traMADol 50 MG TAB PO ONE (01:40)
--- NOTE | 2021-06-01 01:40 | NUR ---
VERBAL ORDER FOR ULTRAM 50MG PO x1 DOSE RECEIVED FROM DR. MARTIN. ERMD MADE AWARE OF PT MORPHINE ALLERGY, PER ERMD OK TO GIVE.
[2021-06-01] MEDS ORDERED: traMADol 50 MG TAB ONE (01:45)
--- NOTE | 2021-06-01 01:50 | NUR ---
PT DECLINED ULTRAM STATING " IT MAKES MY STOMACH HURT. I USUALLY TAKE NORCO OR COULD I HAVE MORPHINE IM WITH BENADRYL." DR. MARTIN MADE AWARE OF PT REQUEST.
[2021-06-01] MEDS ORDERED: HYDROcodone/APAP 5/325 MG 1 TAB TAB PO ONE ×2 (02:00→02:20)
[2021-06-01 02:04] LABS: APPEARANCE,URINE CLOUDY (CLEAR); BILIRUBIN,URINE 2+ (NEGATIVE); BLOOD, URINE 3+ (NEGATIVE); COLOR,URINE RED (YELLOW); LEUKOCYTE ESTERASE ,URINE 2+ (NEGATIVE); NITRITE, URINE POSITIVE (NEGATIVE); PH,URINE 7.5 (5.0-9.0); UGLUCOSE NEGATIVE (NEGATIVE)
--- NOTE | 2021-06-01 02:12 | NUR ---
vomited after taking medicines ERMD noted.
[2021-06-01 02:13] LABS: WBC,URINE TOO MANY TO COUNT /HPF (0-5)
[2021-06-01] MEDS ORDERED: ONDANSETRON 4 MG ODT PO ONE (02:20)
[2021-06-01] MEDS ORDERED: cefTRIAXone 1,000 MG in LIDOCAINE MPF 1% 2.1 ML IM ONE (02:20)
[2021-06-01] MEDS ORDERED: ONDANSETRON 4 MG ODT ONE (02:28)
[2021-06-01] MEDS ORDERED: cefTRIAXone 1,000 MG VIAL ONE (02:28)
[2021-06-01] MEDS ORDERED: LIDOCAINE MPF 1% 5 ML ONE (02:29)
[2021-06-01] MEDS ORDERED: ONDA-24 SL (02:30)
[2021-06-01] MEDS ORDERED: CEPH-588 PO (02:30)
[2021-06-01 02:36] LABS: BARBITURATE, URINE POSITIVE ng/ml (NEG <=200); BENZODIAZEPINE, URINE NEGATIVE ng/mL (NEG <=200); CANNABINOID, URINE POSITIVE ng/mL (NEG <=50); COCAINE, URINE NEGATIVE ng/mL (NEG <=300); OPIATE, URINE POSITIVE ng/mL (NEG <=2000); PHENCYCLIDINE SCREEN,URINE NEGATIVE ng/mL (NEG <=25)
--- NOTE | 2021-06-01 02:45 | NUR ---
all results back and noted by ERMD and for DC
[2021-06-01] MEDS ORDERED: MAGN1.7529 PO (02:54)
[2021-06-01 03:00] VITALS: BP 119/78
--- NOTE | 2021-06-01 03:00 | NUR ---
Patient discharged with v/s stable. Written and verbal after care instructions given and explained. Patient alert, oriented and verbalized understanding of instructions. Ambulatory with steady gait. All questions addressed prior to discharge. ID band removed. Patient advised to follow up with PMD. Rx of KEFLEX,MAGNESUIM CITRATE,ZOFRAN ODT given. Patient educated on indication of medication including possible reaction and side effects. Opportunity to ask questions provided and answered.
== END 2021-06-01 03:00 | disposition home or self-care (01) ==
LOC: MED 22:44
DX: R19.7 Diarrhea, unspecified (principal); N39.0 Urinary tract infection, site not specified; E87.6 Hypokalemia; J45.909 Unspecified asthma, uncomplicated; K21.9 Gastro-esophageal reflux disease without esophagitis; Z88.1 Allergy status to other antibiotic agents; Z88.5 Allergy status to narcotic agent; Z88.8 Allergy status to other drugs, medicaments and biological substances; Z79.899 Other long term (current) drug therapy
CPT/HCPCS: 36415; 74022; 80053; 80305; 81001; 81025; 83690; 85025; 87086; 96372; 96374; 99284; J0696; J1885; J2001; Q0162

== ENCOUNTER 2021-08-12 18:45 | Emergency (ER) | payer OTHER ==
[~2021-08-12] VITALS: Ht 162.6 cm; Wt 75.7 kg
[~2021-08-12 18:45] MED LIST changes: +CEPH-588 PO; +MAGN1.7529 PO; +ONDA-188 SL; -ONDA-24 SL
[2021-08-12 18:49] VITALS: BP 148/61
--- NOTE | 2021-08-12 18:53 | NUR ---
PT AMBULATED TO BED 12
--- NOTE | 2021-08-12 18:59 | NUR ---
36/F WITH HX OF GASTRITIS AND H. PYLORI PRESENTS TO ED WITH C/O ABDOMINAL PAIN, N/V AND ANXIETY X3 DAYS. PATIENT STATES SHE IS WORRIED SHE IS HAVING A "GASTRIC FLARE UP" AND STATES THE SYMPTOMS HAVE BEEN MAKING HER INCREASINGLY MORE ANXIOUS. PATIENT STATES SHE HAS HX OF ANXIETY BUT HAS BEEN VOMITING HER PRESCRIBED LORAZAPAM, PATIENT ALSO STATES SHE ATTEMPTED TO TAKE NORCO FOR PAIN BUT VOMITED IT UP WELL. PATIENT ALSO STATING SHE HAS BEEN HAVING URINARY RETENTION AND PAINFUL BM, STATES LAST BM WAS 2 DAYS AGO. PATIENT DENIES CP, SOB, FEVER OR CHILLS, PT PLACED IN GOWN, DR. CASTLE AWARE OF PATIENT.
[2021-08-12] MEDS ORDERED: LORazepam 2 MG/ML VIAL IVP ONE (19:10)
[2021-08-12] MEDS ORDERED: NACL 0.9% 1,000 ML IV ONE (19:10)
[2021-08-12] MEDS ORDERED: HALOPERIDOL IM 5 MG/ML VIAL IVP ONE (19:10)
--- NOTE | 2021-08-12 19:12 | NUR ---
Pt report given to MARIE MILLARD. Transfer of care at this time.
--- NOTE | 2021-08-12 21:14 | NUR ---
PATIENT SLEEPING AT THIS TIME AFTER WE ADMT ATIVAN 2MG AND HALLOPERIDOL 5 MG STABLE VITALS SIGNS IN NORMAL LIMITS //DiCaprio RN
[2021-08-12] MEDS ORDERED: FAMOTIDINE 20 MG/2 ML VIAL IVP ONE (22:10)
[2021-08-12] MEDS ORDERED: KETOROLAC 15 MG/ML VIAL IVP ONE (22:10)
[2021-08-12] MEDS ORDERED: ONDANSETRON 4 MG/2 ML VIAL IVP ONE (22:10)
[2021-08-12 22:23] VITALS: BP 128/64
--- NOTE | 2021-08-12 22:25 | NUR ---
PATIENT DC HOME STABLE VITALS SIGNS IN NORMAL LIMITS NOT COMPLAINIG OF PAIN AT THIS TIME ALL DC INSTRUCTION GAVE AND EXPLAINED WE RECOMMEND TO COMING BACK TO THE HOSPITAL IF THE SYMPTOMS GET WORSE OR DOENT IMPROVING ALSO FOLLOW UP WITH PCP //Yessi RN
== END 2021-08-12 22:25 | disposition home or self-care (01) ==
LOC: MED 18:45
DX: F41.9 Anxiety disorder, unspecified (principal); J45.909 Unspecified asthma, uncomplicated; K21.9 Gastro-esophageal reflux disease without esophagitis; Z90.49 Acquired absence of other specified parts of digestive tract; Z87.19 Personal history of other diseases of the digestive system; Z79.899 Other long term (current) drug therapy; Z79.2 Long term (current) use of antibiotics; Z79.1 Long term (current) use of non-steroidal anti-inflammatories (NSAID); Z79.891 Long term (current) use of opiate analgesic; Z88.1 Allergy status to other antibiotic agents; Z88.8 Allergy status to other drugs, medicaments and biological substances; Z88.5 Allergy status to narcotic agent
CPT/HCPCS: 96361; 96372; 96374; 96375; 99284; J1630; J1885; J2060; J2405; J3490; J7030

== ENCOUNTER 2022-03-24 09:12 | Observation (INO) | payer OTHER ==
[~2022-03-24] VITALS: Ht 162.6 cm; Wt 69.4 kg
[~2022-03-24 09:12] MED LIST changes: -MAGN1.7529 PO; +MAGN296S2 PO
[2022-03-24 09:18] VITALS: BP 168/78
[2022-03-24] MEDS ORDERED: HALOPERIDOL IM 5 MG/ML VIAL IM ONE (09:35)
[2022-03-24] MEDS ORDERED: NACL 0.9% 1,000 ML IV SCH (09:35)
[2022-03-24] MEDS ORDERED: LORazepam 2 MG/ML VIAL IVP ONE (09:35)
[2022-03-24] MEDS ORDERED: ONDANSETRON 4 MG/2 ML VIAL IVP ONE (09:35)
--- NOTE | 2022-03-24 10:08 | NUR ---
ATTEMPTED MULTIPLE IV STICKS, WITH CHARGE NURSE AND RN, LEX MADE AWARE
[2022-03-24 10:13] LABS: BASOPHILS % (AUTO) 0.5 % (0.0-2.0); EOSINOPHILS % (AUTO) 0.2 % (0.0-4.0); HEMATOCRIT 42.1 % (36-48); HEMOGLOBIN 14.3 g/dL (12.0-16.0); LYMPHOCYTES % (AUTO) 10.2 % (20.5-51.1); MEAN CORPUSCULAR HEMOGLOBIN 29 pg (27-31); MEAN CORPUSCULAR HGB CONC 34 g/dL (33-37); MEAN CORPUSCULAR VOLUME 85.8 fL (80-94); MONOCYTES # (AUTO) 0.5 K/uL (0.8-1.0); MONOCYTES % (AUTO) 5.2 % (1.7-9.3); NEUTROPHILS # (AUTO) 8.1 K/uL (1.8-7.7); NEUTROPHILS % (AUTO) 83.9 % (42.2-75.2); PLATELET COUNT (AUTO) 175 K/uL (140-450); RED CELL DISTRIBUTION WIDTH 15.3 % (11.6-13.7); WHITE BLOOD COUNT (AUTO) 9.6 K/uL (4.8-10.8)
--- NOTE | 2022-03-24 10:14 | NUR ---
PER MANAGER CONCRETESHEREEN, REMOVED 2 NECKLACES FROM PT AND HANDED THEM TO PT.
[2022-03-24] MEDS ORDERED: ONDANSETRON 4 MG ODT PO ONE (10:20)
[2022-03-24] MEDS ORDERED: MORPHINE SULFATE 4 MG/ML SYR IM ONE (10:20)
[2022-03-24 10:26] LABS: ALBUMIN 4.5 g/dL (3.4-5.0); CARBON DIOXIDE 25.9 mmol/L (21-32); CREATININE 0.9 mg/dL (0.6-1.3)
[2022-03-24 10:32] LABS: POTASSIUM 2.9 mmol/L (3.5-5.1)
[2022-03-24 10:39] LABS: APPEARANCE,URINE CLEAR (CLEAR); BILIRUBIN,URINE 2+ (NEGATIVE); BLOOD, URINE NEGATIVE (NEGATIVE); COLOR,URINE YELLOW (YELLOW); LEUKOCYTE ESTERASE ,URINE NEGATIVE (NEGATIVE); NITRITE, URINE NEGATIVE (NEGATIVE); UGLUCOSE NEGATIVE (NEGATIVE)
[2022-03-24] MEDS ORDERED: PROCHLORPERAZINE 10 MG/2 ML VIAL IVP ONE (10:55)
[2022-03-24] MEDS ORDERED: POTASSIUM CHLORIDE 10 MEQ TABER PO ONE (10:55)
[2022-03-24 11:09] LABS: BARBITURATE, URINE NEGATIVE ng/ml (NEG <=200); BENZODIAZEPINE, URINE POSITIVE ng/mL (NEG <=200); CANNABINOID, URINE POSITIVE ng/mL (NEG <=50); OPIATE, URINE POSITIVE ng/mL (NEG <=2000)
[2022-03-24 11:10] LABS: COCAINE, URINE NEGATIVE ng/mL (NEG <=300); PHENCYCLIDINE SCREEN,URINE NEGATIVE ng/mL (NEG <=25)
[2022-03-24 11:25] LABS: RBC,URINE 0-5 /HPF (0-5); WBC,URINE 0-5 /HPF (0-5)
--- NOTE | 2022-03-24 11:58 | NUR ---
DR DUFF ATTEMPTED ULTRASOUND IV, NO LINE.
--- NOTE | 2022-03-24 13:03 | NUR ---
IV LINE INSERTED BY DR DUFF IN THE LEFT FOREARM INFILTRATED AFTER PT WALKED TO BATHROOM AND TUGGED ON LINE
[2022-03-24] MEDS ORDERED: FAMO-90 PO (13:55)
[2022-03-24] MEDS ORDERED: SERT100T PO (13:55)
[2022-03-24] MEDS ORDERED: QUET200T PO (13:55)
[2022-03-24] MEDS ORDERED: TRAZ-343 PO (13:55)
[2022-03-24] MEDS ORDERED: ACETAMINOPHEN 325 MG TAB PO PRN (14:00)
[2022-03-24] MEDS: NACL 0.9% 1,000 ML IV SCH ×2 (14:00→22:26)
--- NOTE | 2022-03-24 14:20 | NUR ---
DR BALDERRAMA TO SEE PATIENT
--- NOTE | 2022-03-24 15:13 | NUR ---
PT HAS BEEN BROUGHT IN BY ALIVIA IN STABLE CONDITION. PT ABLE TO AMBULATE TO BED WITH STEADY GAIT. ALL BELONGINGS AT BEDSIDE. PT IS ALERT AND ORIENTED X4, ON ROOM AIR WITH CLEAR LUNG SOUNDS, CHEST RISING AND FALLING EVEN AND UNLABORED. S1&S2 HEART SOUNDS HEARD. VSS. BOWEL SOUNDS ACTIVE, FLATUS NOTED. PT REPORTS UNK LAST BOWEL MOVEMENT BUT ESTIMATES IT WAS MARCH 20. +2 PEDAL PULSES NOTED. NO EDEMA NOTED. PT REPORTS PAIN IN ABDOMEN STATES IT IS STABBING AND RADIATED TO THE BACK. WILL MEDICATE PER MD ORDER. IV IN LEFT UPPER ARM INFILTRATED, REMOVED, CATH IN PLACE. PT TOLERATED REMOVAL. PT EDUCATED MANAGER ERP LIGHT. ALL SAFETY MEASURES IN PLACE, CALL LIGHT WITHIN REACH. WILL CONTINUE TO MONITOR.
--- NOTE | 2022-03-24 15:15 | NUR ---
Patient will be admitted to care of DR MATTHEWS. [facility]. Will go to [facility]. Belongings list completed. Report to ADOLFO MILLARD.
[2022-03-24] MEDS: HYDROcodone/APAP 5/325 MG 1 TAB TAB PO PRN (15:23)
--- NOTE | 2022-03-24 15:23 | NUR ---
PRN PAIN MEDICATION ADMINISTERED PER MD ORDER, PT TOLERATED ADMINISTRATION. ALL SAFETY MEASURES IN PLACE. CALL LIGHT WITHIN REACH. WILL CONTINUE TO MONITOR.
[2022-03-24 16:00] VITALS: BP 139/82
--- NOTE | 2022-03-24 17:37 | NUR ---
PT ASLEEP IN BED WITH CHEST RISING AND FALLING EVEN AND UNLABORED, NO ACUTE S/S OF DISTRESS. CALL LIGHT WITHIN REACH, ALL SAFETY MEASURES IN PLACE. WILL CONTINUE TO MONITOR.
--- NOTE | 2022-03-24 18:56 | NUR ---
ALL NEEDS MET THROUGHOUT THE SHIFT, PT REMAINED STABLE. PT WILL BE ENDORSED TO [employer] SYSTEM ADMINISTRATOR NURSE AT 1900.
--- NOTE | 2022-03-24 19:20 | NUR ---
RECEIVED PT FROM AM NURSE FOR CONTINUITY OF CARE,PT IS STABLE
[2022-03-24 20:00] VITALS: BP 111/62
--- NOTE | 2022-03-24 20:30 | NUR ---
PICC LINE 2 LUMEN PLACED ON RIGHT UPPER ARM.TOLERATED WELL. CALLED RADIOLOGY FOR XRAY
[2022-03-24] MEDS: ONDANSETRON 4 MG/2 ML VIAL IVP PRN (21:38)
--- NOTE | 2022-03-25 01:00 | NUR ---
PATIENT ASLEEP,BREATHING EVEN AND UNLABORED,NO DISTRESS NOTED
--- NOTE | 2022-03-25 03:00 | NUR ---
PT ASLEEP,BREATHING EVEN AND UNLABORED,NO DISTRESS NOTED
[2022-03-25 04:00] VITALS: BP 112/87
[2022-03-25] MEDS: ONDANSETRON 4 MG/2 ML VIAL IVP PRN (05:51)
[2022-03-25] MEDS: LORazepam 1 MG TAB PO PRN ×3 (05:51→18:31)
[2022-03-25] MEDS: NACL 0.9% 1,000 ML IV SCH ×3 (05:59→22:12)
--- NOTE | 2022-03-25 06:00 | NUR ---
PATIENT IS AWAKE, NO N/V,NO ANXIETY NOTED,ALL SAFETY MEASURES IN PLACE
[2022-03-25 06:43] LABS: BASOPHILS # (AUTO) 0.1 K/uL (0.00-0.22); BASOPHILS % (AUTO) 0.5 % (0.0-2.0); EOSINOPHILS % (AUTO) 0.3 % (0.0-4.0); HEMATOCRIT 41.6 % (36-48); HEMOGLOBIN 13.7 g/dL (12.0-16.0); LYMPHOCYTES # (AUTO) 1.6 K/uL (2.5-16.5); LYMPHOCYTES % (AUTO) 13.5 % (20.5-51.1); MEAN CORPUSCULAR HEMOGLOBIN 29 pg (27-31); MEAN CORPUSCULAR HGB CONC 33 g/dL (33-37); MEAN CORPUSCULAR VOLUME 87.7 fL (80-94); MONOCYTES # (AUTO) 0.7 K/uL (0.8-1.0); MONOCYTES % (AUTO) 5.6 % (1.7-9.3); NEUTROPHILS # (AUTO) 9.7 K/uL (1.8-7.7); NEUTROPHILS % (AUTO) 80.1 % (42.2-75.2); PLATELET COUNT (AUTO) 176 K/uL (140-450); RED BLOOD CELL COUNT(AUTO) 4.75 MIL/uL (4.20-5.40); WHITE BLOOD COUNT (AUTO) 12.1 K/uL (4.8-10.8)
[2022-03-25 07:00] LABS: ALBUMIN 3.9 g/dL (3.4-5.0); ANION GAP 17.8 (8-16); CARBON DIOXIDE 24.2 mmol/L (21-32); CREATININE 0.8 mg/dL (0.6-1.3); MAGNESIUM 1.8 mg/dL (1.8-2.4); PHOSPHORUS 2.2 mg/dL (2.5-4.9); TOTAL BILIRUBIN 0.8 mg/dL (0.0-1.0)
--- NOTE | 2022-03-25 07:10 | NUR ---
ENDORSED PT TO AM NURSE FOR CONTINUITY OF CARE,PT IS STABLE
[2022-03-25 08:00] VITALS: BP 106/64
--- NOTE | 2022-03-25 08:00 | NUR ---
RECEIVE ENDORSEMENT FORM PM SHIFT NURSE THAT PATIENT REST IN BED, PICC ELISABET NS INFUSING AT 125ML/HR, WILL CONTINUE TO MONITOR
--- NOTE | 2022-03-25 08:46 | NUR ---
PATIENT HAS BEEN SCREENED AND CATEGORIZED HIGH NUTRITION RISK. PATIENT WILL BE SEEN WITHIN 1-2 DAYS OF ADMISSION. REFERRAL RECEIVED FOR VOMITING. 03/25/22-03/26/[address]
[2022-03-25] MEDS: HYDROcodone/APAP 5/325 MG 1 TAB TAB PO PRN ×2 (13:16→18:31)
[2022-03-25 16:00] VITALS: BP 104/66
--- NOTE | 2022-03-25 16:37 | NUR ---
03/25/2022 RD INITIAL ASSESSMENT COMPLETED. PLEASE REFER TO NUTRITION ASSESSMENT UNDER CARE ACTIVITY FOR ESTIMATED NUTRITIONAL NEEDS. 1. CONTINUE WITH CLEAR LIQUID DIET. WHEN/IF MEDICALLY APPROPRIATE, RECOMMEND ADVANCING TO FULL LIQUID DIET. 2.MONITOR GI FUNCTION 3.RD TO FOLLOW-UP IN 2-3 DAYS PATIENT IS HIGH RISK. ARTEMIO CLE[address] RD
--- NOTE | 2022-03-25 19:35 | NUR ---
RECEIVED PT FROM AM NURSE FOR CONTINUITY OF CARE.PT IS STABLE
--- NOTE | 2022-03-25 19:42 | NUR ---
ENDORSE PT TO PM SHIFT NURSE THAT PATIENT REST IN BED, PICC ELISABET NS INFUSING AT 125ML/HR
[2022-03-25 20:00] VITALS: BP 114/74
--- NOTE | 2022-03-26 01:30 | NUR ---
CALLED DR CUELLAR,CONTINGENTS SUPERVISOR FOR DR MATTHEWS REGARDING THE PATIENT'S POTASSIUM LEVEL OF 3.0. DR ORDERED K DUR 40 MEQ PO ONCE.
[2022-03-26] MEDS ORDERED: POTASSIUM CHLORIDE 10 MEQ TABER PO SCH (01:40)
--- NOTE | 2022-03-26 03:00 | NUR ---
PATIENT ASLEEP,BREATHING EVEN AND UNLABORED,NO DISTRESS NOTED
[2022-03-26] MEDS: ONDANSETRON 4 MG/2 ML VIAL IVP PRN (05:20)
[2022-03-26] MEDS: LORazepam 1 MG TAB PO PRN ×2 (05:21→13:44)
[2022-03-26] MEDS: NACL 0.9% 1,000 ML IV SCH ×2 (05:40→13:20)
--- NOTE | 2022-03-26 07:20 | NUR ---
RECEIVED REPORT FROM FISHERIES TECHNICIAN NURSE FOR CONTINUITY OF CARE. PATIENT ASLEEP NO DISTRESS NOTED. RESPIRATION EVEN AND NOT LABORED ON ROOM AIR. IV SITE ON RIGHT UPPER ARM DOUBLE LUMEN PICC LINE RUNNING AT 125 CC/HOUR OF NS. PATIENT ON CLEAR LIQUID DIET.
[2022-03-26] MEDS: HYDROcodone/APAP 5/325 MG 1 TAB TAB PO PRN (07:53)
--- NOTE | 2022-03-26 07:55 | NUR ---
PATIENT COMPLAIN OF ABDOMINAL PAIN MEDICATED ORDERED .
[2022-03-26 08:00] VITALS: BP 125/73
--- NOTE | 2022-03-26 10:00 | NUR ---
PATIENT ON BED ASLEEP NO DISTRESS NOTED. IV STILL RUNNING AT 125 CC/HOUR. TOLERATED WELL.
--- NOTE | 2022-03-26 11:51 | NUR ---
POTASSIUM LABEL OF PATIENT YESTERDAY IS3.0 AND PEBBLE MILL OPERATOR GAVE K-DUR BUT NO FOLLOW UP LABS INFORM DR. MATTHEWS AND HE ORDER CBC AND CMP ORDER NOTED AND CARRIED OUT.
[2022-03-26 12:23] LABS: BASOPHILS % (AUTO) 0.5 % (0.0-2.0); EOSINOPHILS # (AUTO) 0.1 K/uL (0-0.4); EOSINOPHILS % (AUTO) 0.9 % (0.0-4.0); HEMATOCRIT 38.8 % (36-48); LYMPHOCYTES # (AUTO) 1.5 K/uL (2.5-16.5); LYMPHOCYTES % (AUTO) 23.4 % (20.5-51.1); MEAN CORPUSCULAR HEMOGLOBIN 29 pg (27-31); MEAN CORPUSCULAR HGB CONC 34 g/dL (33-37); MEAN CORPUSCULAR VOLUME 86.9 fL (80-94); MONOCYTES # (AUTO) 0.4 K/uL (0.8-1.0); MONOCYTES % (AUTO) 6.8 % (1.7-9.3); NEUTROPHILS # (AUTO) 4.3 K/uL (1.8-7.7); NEUTROPHILS % (AUTO) 68.4 % (42.2-75.2); PLATELET COUNT (AUTO) 155 K/uL (140-450); RED BLOOD CELL COUNT(AUTO) 4.46 MIL/uL (4.20-5.40); WHITE BLOOD COUNT (AUTO) 6.2 K/uL (4.8-10.8)
[2022-03-26 12:50] LABS: ALBUMIN 3.3 g/dL (3.4-5.0); ANION GAP 8.4 (8-16); CARBON DIOXIDE 27.3 mmol/L (21-32); CREATININE 0.6 mg/dL (0.6-1.3); POTASSIUM 3.7 mmol/L (3.5-5.1); TOTAL BILIRUBIN 0.5 mg/dL (0.0-1.0)
--- NOTE | 2022-03-26 13:44 | NUR ---
PATIENT COMPLAIN OF ANXIETY TRIED TO CALM HER DOWN. RE DIRECTED AND RELAXATION TECHNIQUE IN EFFECTIVE. MEDICATED ORDER.
--- NOTE | 2022-03-26 16:05 | NUR ---
PATIENT ALERT ORIENTED ABLE TO MAKE NEEDS KNOWN. RESPIRATION EVEN AND NOT LABORED NO SHORTNESS OF BREATH. GIVEN DISCHARGE PACKET WITH INSTRUCTION VERBALIZED UNDERSTANDING. INSTRUCTED TO SEE PRIMARY PHYSICIAN WITH IN 5 TO 7 BUSINESS DAY. REMOVED NAME BAND AND PICC LINE REMOVED BY RN CATHETER INTACT. COMPRESSION APPLIED. WHEELED PATIENT TO THE LOBBY ENVIRONMENTAL MONITORING SPECIALIST BY HER BROTHER.
[2022-03-27] MEDS ORDERED: NITR100C7 PO (17:21)
== END 2022-03-26 16:05 | disposition home or self-care (01) ==
LOC: MED 09:12 → MTU 14:01
PROVIDERS: ADMIT Hospitalist; ATTEND Hospitalist
DX: R10.13 Epigastric pain (principal); Z20.822 Contact with and (suspected) exposure to COVID-19; K21.9 Gastro-esophageal reflux disease without esophagitis; K31.84 Gastroparesis; K56.7 Ileus, unspecified; R11.2 Nausea with vomiting, unspecified; E87.6 Hypokalemia; E86.0 Dehydration; F41.8 Other specified anxiety disorders; J45.909 Unspecified asthma, uncomplicated; Z79.899 Other long term (current) drug therapy
CPT/HCPCS: 36415; 71045; 74022; 74176; 80053; 80305; 81001; 83690; 83735; 84100; 84703; 85025; 87081; 87426; 96361; 96372; 96374; 96375; 96376; 99285; G0378; J0780; J1630; J2060; J2270; J2405; J7030; Q0162

== ENCOUNTER 2022-03-27 13:40 | Emergency (ER) | payer OTHER ==
[~2022-03-27] VITALS: Ht 162.6 cm; Wt 68.2 kg
[~2022-03-27 13:40] MED LIST changes: -ACET-8386 PO; -AMIT25TA39 PO; -ATA25 PO; -ATI.5 PO; -CEPH-588 PO; -CIPR250T3 PO; -DOXY-487 PO; +FAMO-90 PO; -IBUP-2213 PO; -MAGN296S2 PO; -ONDA8TAB87 PO; -PANT40EC PO; -PROC-62 PO; -PROM25TA85 PO; +QUET200T PO; -RANI-745 PO; +SERT100T PO; -SULF-59 PO; +TRAZ-343 PO
[2022-03-27 13:49] VITALS: BP 108/84
[2022-03-27] MEDS ORDERED: HALOPERIDOL IM 5 MG/ML VIAL IM ONE (15:15)
[2022-03-27] MEDS ORDERED: LORazepam 1 MG TAB PO ONE (15:15)
[2022-03-27 16:19] LABS: BASOPHILS # (AUTO) 0.1 K/uL (0.00-0.22); BASOPHILS % (AUTO) 0.7 % (0.0-2.0); EOSINOPHILS % (AUTO) 0.4 % (0.0-4.0); HEMATOCRIT 45.3 % (36-48); HEMOGLOBIN 15.2 g/dL (12.0-16.0); LYMPHOCYTES # (AUTO) 1.1 K/uL (2.5-16.5); LYMPHOCYTES % (AUTO) 14.3 % (20.5-51.1); MEAN CORPUSCULAR HEMOGLOBIN 29 pg (27-31); MEAN CORPUSCULAR HGB CONC 34 g/dL (33-37); MEAN CORPUSCULAR VOLUME 86.5 fL (80-94); MONOCYTES # (AUTO) 0.7 K/uL (0.8-1.0); MONOCYTES % (AUTO) 8.5 % (1.7-9.3); NEUTROPHILS % (AUTO) 76.1 % (42.2-75.2); PLATELET COUNT (AUTO) 213 K/uL (140-450); RED BLOOD CELL COUNT(AUTO) 5.23 MIL/uL (4.20-5.40); RED CELL DISTRIBUTION WIDTH 15.5 % (11.6-13.7); WHITE BLOOD COUNT (AUTO) 7.9 K/uL (4.8-10.8)
[2022-03-27 16:41] LABS: APPEARANCE,URINE HAZY (CLEAR); BILIRUBIN,URINE 3+ (NEGATIVE); BLOOD, URINE 3+ (NEGATIVE); COLOR,URINE RED (YELLOW); LEUKOCYTE ESTERASE ,URINE 1+ (NEGATIVE); NITRITE, URINE POSITIVE (NEGATIVE); PH,URINE 6.5 (5.0-9.0); UGLUCOSE TRACE (NEGATIVE)
[2022-03-27 16:58] LABS: ALBUMIN 4.3 g/dL (3.4-5.0); ANION GAP 19.4 (8-16); CARBON DIOXIDE 22.3 mmol/L (21-32); CREATININE 0.9 mg/dL (0.6-1.3); POTASSIUM 3.7 mmol/L (3.5-5.1); TOTAL BILIRUBIN 0.7 mg/dL (0.0-1.0)
[2022-03-27] MEDS ORDERED: NITR100C7 PO (17:21)
[2022-03-27 17:44] LABS: OTHER CASTS, URINE None Seen /LPF (None Seen); RBC,URINE 11-20 (MOD) /HPF (0-5)
[2022-03-27] MEDS ORDERED: HALOPERIDOL IM 5 MG/ML VIAL ONE (18:53)
[2022-03-27] MEDS ORDERED: LORazepam 1 MG TAB ONE (18:54)
--- NOTE | 2022-03-27 19:27 | NUR ---
PT CLEARED FOR D/C BY DR. MANRIQUEZ. D/C INSTRUCTIONS FOR UTI/GASTROPARESIS GIVEN. RX OF MACROBID GIVEN. ALL QUESTIONS ASKED AND ANSWERED PRIOR TO D/C.
--- NOTE | 2022-03-30 18:56 | NUR ---
LATE ENTRY. RECEIVED POSITIVE URINE CULTURE. DISCREPANCY LOG SIGNED BY DR VILLATORO. TREATMENT APPROPRIATE. FORM PLACED IN BINDER.
== END 2022-03-27 19:27 | disposition home or self-care (01) ==
LOC: MED 13:40
DX: R11.2 Nausea with vomiting, unspecified (principal); N39.0 Urinary tract infection, site not specified; K31.84 Gastroparesis; K21.9 Gastro-esophageal reflux disease without esophagitis; F12.90 Cannabis use, unspecified, uncomplicated; Z79.899 Other long term (current) drug therapy; Z88.1 Allergy status to other antibiotic agents; Z88.8 Allergy status to other drugs, medicaments and biological substances
CPT/HCPCS: 36415; 80053; 81001; 81025; 83690; 85025; 87086; 96372; 99283; J1630

== ENCOUNTER 2022-03-31 14:29 | Emergency (ER) | payer OTHER ==
[~2022-03-31] VITALS: Ht 162.6 cm; Wt 65.3 kg
[~2022-03-31 14:29] MED LIST changes: +NITR100C7 PO
[2022-03-31 14:33] VITALS: BP 127/65
--- NOTE | 2022-03-31 14:39 | NUR ---
PT AMB TO BED 9.
--- NOTE | 2022-03-31 15:05 | NUR ---
36 Y/O FEMALE C/O ABDOMINAL PAIN 07/02 DECRIBES SHARP GENERALIZED [id number]. PT STATES LAST BM 2 WEEKS AGO. PT SEEN HERE SAME S/S 3 DAYS, AND STATES SHE WAS ADMITTED HERE AND RECENTLY DISCHARGED. DENIES FEVER/CHILLS. DENIES N/V/D. PMH: GASTRITIS, ANXIETY, DEPRESSION, HIATAL HERNIA, GERD, CHOLECYSTECTOMY, MARIJUANA USE ALLERGIES: CIPRO, REGLAN, AND PROTONIX
--- NOTE | 2022-03-31 15:16 | NUR ---
MARIA FALKTO AT PT BEDSIDE FOR FURTHER EVALUATION.
[2022-03-31] MEDS ORDERED: HALOPERIDOL IM 5 MG/ML VIAL IVP ONE (15:30)
[2022-03-31] MEDS ORDERED: LORazepam 1 MG TAB PO ONE (15:30)
[2022-03-31] MEDS ORDERED: KETOROLAC 15 MG/ML VIAL IVP ONE (15:30)
[2022-03-31] MEDS ORDERED: NACL 0.9% 1,000 ML IV ONE (15:30)
[2022-03-31] MEDS ORDERED: CAPSAICIN 0.025% CRE 60 GM TUBE TP ONE (15:40)
--- NOTE | 2022-03-31 15:43 | NUR ---
TRIMMER SORTER AT PT BEDSIDE.
[2022-03-31 15:51] LABS: BASOPHILS # (AUTO) 0.1 K/uL (0.00-0.22); BASOPHILS % (AUTO) 0.9 % (0.0-2.0); EOSINOPHILS % (AUTO) 0.5 % (0.0-4.0); HEMATOCRIT 40.2 % (36-48); HEMOGLOBIN 13.6 g/dL (12.0-16.0); LYMPHOCYTES # (AUTO) 0.9 K/uL (2.5-16.5); MEAN CORPUSCULAR HEMOGLOBIN 29 pg (27-31); MEAN CORPUSCULAR HGB CONC 34 g/dL (33-37); MEAN CORPUSCULAR VOLUME 85.4 fL (80-94); MONOCYTES # (AUTO) 0.5 K/uL (0.8-1.0); MONOCYTES % (AUTO) 6.7 % (1.7-9.3); NEUTROPHILS # (AUTO) 5.7 K/uL (1.8-7.7); NEUTROPHILS % (AUTO) 78.9 % (42.2-75.2); PLATELET COUNT (AUTO) 186 K/uL (140-450); RED BLOOD CELL COUNT(AUTO) 4.71 MIL/uL (4.20-5.40); RED CELL DISTRIBUTION WIDTH 15.1 % (11.6-13.7); WHITE BLOOD COUNT (AUTO) 7.2 K/uL (4.8-10.8)
[2022-03-31 16:06] LABS: ALBUMIN 3.8 g/dL (3.4-5.0); ANION GAP 10.1 (8-16); CARBON DIOXIDE 27.8 mmol/L (21-32); CREATININE 0.9 mg/dL (0.6-1.3); TOTAL BILIRUBIN 0.5 mg/dL (0.0-1.0)
[2022-03-31 16:06] LABS: APPEARANCE,URINE SL CLOUDY (CLEAR); BILIRUBIN,URINE 2+ (NEGATIVE); BLOOD, URINE 2+ (NEGATIVE); COLOR,URINE YELLOW (YELLOW); LEUKOCYTE ESTERASE ,URINE 2+ (NEGATIVE); NITRITE, URINE NEGATIVE (NEGATIVE); PH,URINE 6.5 (5.0-9.0); UGLUCOSE NEGATIVE (NEGATIVE)
[2022-03-31 16:28] LABS: POTASSIUM 2.9 mmol/L (3.5-5.1)
[2022-03-31] MEDS: POTASSIUM CHLORIDE 10 MEQ TABER PO ONE ×2 (16:45→16:49)
[2022-03-31 16:56] LABS: RBC,URINE 0-5 /HPF (0-5); WBC,URINE 0-5 /HPF (0-5)
[2022-03-31 16:57] LABS: TRICHOMONAS,URINE None Seen /HPF (None Seen); YEAST,URINE None Seen /HPF (None Seen)
[2022-03-31 16:58] LABS: CALCIUM OXALATE CRYSTALS,UR None Seen /HPF (None Seen); URIC ACID CRYSTALS,URINE 0-10 /HPF (None Seen)
--- NOTE | 2022-03-31 17:22 | NUR ---
PT TAKEN TO CT VIA W/C.
--- NOTE | 2022-03-31 17:40 | NUR ---
PT TAKEN TO ER BED 9 VIA W/C FROM CT.
[2022-03-31] MEDS ORDERED: BEN10 PO (18:29)
[2022-03-31] MEDS ORDERED: ONDA-188 PO (18:29)
[2022-03-31] MEDS ORDERED: ACET-9520 PO (18:29)
--- NOTE | 2022-03-31 18:36 | NUR ---
PT SLEEPING ON LEFT SIDE VISIBLE EQUAL RISE AND FALL OF CHEST, WILL CONTINUE TO MONITOR.
--- NOTE | 2022-03-31 19:13 | NUR ---
GAVE REPORT TO VENICE GIRALDO. TRANSFER OF CARE AT THIS TIME,
[2022-03-31 20:34] VITALS: BP 132/72
--- NOTE | 2022-03-31 20:35 | NUR ---
Patient discharged with v/s stable. Written and verbal after care instructions given and explained. Patient alert, oriented and verbalized understanding of instructions. Ambulatory with steady gait. All questions addressed prior to discharge. ID band removed. Patient advised to follow up with PMD. Rx of TYLENOL, BENTYL, ZOFRAN given. Patient educated on indication of medication including possible reaction and side effects. Opportunity to ask questions provided and answered. VSS, A/OX4, UNLABORED BREATHING, AMBULATORY, AND CALM DEMEANOR.
== END 2022-03-31 20:35 | disposition home or self-care (01) ==
LOC: MED 14:29
DX: G89.29 Other chronic pain (principal); R10.13 Epigastric pain; R11.10 Vomiting, unspecified; K21.9 Gastro-esophageal reflux disease without esophagitis; F12.90 Cannabis use, unspecified, uncomplicated; F41.9 Anxiety disorder, unspecified; F32.9 Major depressive disorder, single episode, unspecified; Z90.49 Acquired absence of other specified parts of digestive tract; Z79.899 Other long term (current) drug therapy; Z88.1 Allergy status to other antibiotic agents; Z88.8 Allergy status to other drugs, medicaments and biological substances
CPT/HCPCS: 36415; 74176; 80053; 81001; 81025; 83690; 83735; 85025; 87086; 96361; 96374; 96375; 99284; J1630; J1885; J7030

== ENCOUNTER 2022-04-04 14:42 | Emergency (ER) | payer OTHER ==
[~2022-04-04] VITALS: Ht 165.1 cm; Wt 59.0 kg
[~2022-04-04 14:42] MED LIST changes: +ACET-9520 PO; +BEN10 PO; +ONDA-188 PO
[2022-04-04 14:45] VITALS: BP 122/70
--- NOTE | 2022-04-04 14:45 | NUR ---
BIBA to bed 09.
--- NOTE | 2022-04-04 15:28 | NUR ---
36 y/o F BIBA from home c/o generalized abdominal pain x 2.5 weeks. 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 States symptoms feel like gastritis. Tylenol at 0900 without relief. Pt also states nausea, vomiting x 7 episodes today. Constipation with last BM 2 weeks ago. Bowel sounds hypoactive lower quadrants. community outreach manager in place. Bed locked in lowest position, side rails x 2. PMH: gastritis, gastroporesis, anxiety, hiatal hernia, umbilical hernia Meds: [place], pepcid, ativan, trazodone, zoloft, seroquel Allergies: cipro, reglan, protonix Sx: cholecystectomy
[2022-04-04] MEDS ORDERED: DICYCLOMINE HCL LIQUID 20 MG, ALUMINUM HYD/MAG/SIMETHICONE 30 ML, LIDOCAINE VISCOUS 2% ... PO ONE ×3 (15:30)
[2022-04-04] MEDS ORDERED: KETOROLAC 60 MG/2 ML VIAL IM ONE (15:30)
--- NOTE | 2022-04-04 15:38 | NUR ---
PT AMBULATED TO AND FROM RESTROOM FOR URINE SAMPLE
[2022-04-04] MEDS ORDERED: DICYCLOMINE HCL LIQUID 10 MG/5 ML UDC ONE (16:01)
[2022-04-04] MEDS ORDERED: ALUMINUM HYD/MAG/SIMETHICONE 30 ML UDC ONE (16:01)
--- NOTE | 2022-04-04 16:10 | NUR ---
DR MOLINA AT BEDSIDE EVALUATING PT
[2022-04-04] MEDS ORDERED: ACET-8386 PO (16:35)
[2022-04-04] MEDS ORDERED: ATA25 PO (16:35)
[2022-04-04 16:48] VITALS: BP 105/71
--- NOTE | 2022-04-04 16:48 | NUR ---
Patient discharged with v/s stable. Written and verbal after care instructions given and explained. Patient alert, oriented and verbalized understanding of instructions. Ambulatory with steady gait. All questions addressed prior to discharge. ID band removed. Patient advised to follow up with PMD. Rx of Hydrocodone/Acetaminophen, Atarax given. Patient educated on indication of medication including possible reaction and side effects. Opportunity to ask questions provided and answered.
== END 2022-04-04 16:48 | disposition home or self-care (01) ==
LOC: MED 14:42
DX: R10.13 Epigastric pain (principal); K21.9 Gastro-esophageal reflux disease without esophagitis; F41.9 Anxiety disorder, unspecified; F32.9 Major depressive disorder, single episode, unspecified; F12.90 Cannabis use, unspecified, uncomplicated; Z88.1 Allergy status to other antibiotic agents; Z88.8 Allergy status to other drugs, medicaments and biological substances; Z79.899 Other long term (current) drug therapy; Z90.49 Acquired absence of other specified parts of digestive tract
CPT/HCPCS: 81002; 81025; 96372; 99283; J1885

== ENCOUNTER 2022-10-15 12:04 | Emergency (ER) | payer OTHER ==
[~2022-10-15] VITALS: Ht 162.6 cm; Wt 62.6 kg
[~2022-10-15 12:04] MED LIST changes: +ACET-1182 PO; -ACET-9520 PO; +AMIT25TA29 PO; -BEN10 PO; +CAPS42.514 TP; +MAG10ORA PO; +NAPR-1717 PO; -NITR100C7 PO; -ONDA-188 PO; -ONDA-188 SL; +ONDA4ODT2 SL; -QUET200T PO; +SENN-74 PO
--- NOTE | 2022-10-15 12:05 | NUR ---
Jaxon askew in [facility] - 10/15/22 at 1205 by PHSEP RENETTA ECHOLS 5
[2022-10-15 12:08] VITALS: BP 107/83
[2022-10-15 14:08] LABS: BASOPHILS # (AUTO) 0.1 K/uL (0.00-0.22); BASOPHILS % (AUTO) 0.8 % (0.0-2.0); EOSINOPHILS % (AUTO) 0.1 % (0.0-4.0); HEMATOCRIT 47.1 % (36-48); HEMOGLOBIN 16.2 g/dL (12.0-16.0); LYMPHOCYTES # (AUTO) 1.1 K/uL (2.5-16.5); LYMPHOCYTES % (AUTO) 15.6 % (20.5-51.1); MEAN CORPUSCULAR HEMOGLOBIN 29 pg (27-31); MEAN CORPUSCULAR HGB CONC 34 g/dL (33-37); MEAN CORPUSCULAR VOLUME 84.3 fL (80-94); MONOCYTES # (AUTO) 0.7 K/uL (0.8-1.0); MONOCYTES % (AUTO) 9.1 % (1.7-9.3); NEUTROPHILS # (AUTO) 5.4 K/uL (1.8-7.7); NEUTROPHILS % (AUTO) 74.4 % (42.2-75.2); PLATELET COUNT (AUTO) 273 K/uL (140-450); RED BLOOD CELL COUNT(AUTO) 5.58 MIL/uL (4.20-5.40); RED CELL DISTRIBUTION WIDTH 14.2 % (11.6-13.7); WHITE BLOOD COUNT (AUTO) 7.3 K/uL (4.8-10.8)
[2022-10-15] MEDS ORDERED: ONDANSETRON 4 MG ODT PO ONE (14:10)
[2022-10-15] MEDS ORDERED: KETOROLAC 60 MG/2 ML VIAL IM ONE (14:20)
[2022-10-15] MEDS ORDERED: LORazepam 2 MG/ML VIAL IM ONE ×2 (14:20→15:30)
[2022-10-15 14:23] LABS: BILIRUBIN,URINE 1+ (NEGATIVE); BLOOD, URINE NEGATIVE (NEGATIVE); LEUKOCYTE ESTERASE ,URINE NEGATIVE (NEGATIVE); NITRITE, URINE NEGATIVE (NEGATIVE); UGLUCOSE NEGATIVE (NEGATIVE)
[2022-10-15 14:30] LABS: APPEARANCE,URINE CLOUDY (CLEAR); COLOR,URINE AMBER (YELLOW)
[2022-10-15 15:08] LABS: ALBUMIN 5.2 g/dL (3.4-5.0); ANION GAP 16.9 (8-16); CARBON DIOXIDE 23.5 mmol/L (21-32); POTASSIUM 3.4 mmol/L (3.5-5.1); TOTAL BILIRUBIN 0.8 mg/dL (0.0-1.0)
[2022-10-15] MEDS ORDERED: ATA25 PO (15:30)
[2022-10-15] MEDS ORDERED: ONDA8TAB87 PO (15:30)
[2022-10-15 16:20] VITALS: BP 95/58
== END 2022-10-15 16:21 | disposition home or self-care (01) ==
LOC: MED 12:04
DX: R10.13 Epigastric pain (principal); R11.2 Nausea with vomiting, unspecified; F41.9 Anxiety disorder, unspecified; J45.909 Unspecified asthma, uncomplicated; K21.9 Gastro-esophageal reflux disease without esophagitis; F32.9 Major depressive disorder, single episode, unspecified; Z87.891 Personal history of nicotine dependence; Z90.49 Acquired absence of other specified parts of digestive tract; Z88.1 Allergy status to other antibiotic agents; Z88.8 Allergy status to other drugs, medicaments and biological substances; Z79.899 Other long term (current) drug therapy
CPT/HCPCS: 36415; 80053; 81003; 81025; 83690; 85025; 96372; 99285; J1885; J2060; Q0162

== ENCOUNTER 2023-02-08 08:20 | Day surgery (SDC) | payer OTHER ==
[~2023-02-08] VITALS: Ht 160 cm; Wt 60.3 kg
[~2023-02-08 08:20] MED LIST changes: +ATA25 PO; +ONDA8TAB87 PO
[2023-02-08] MEDS ORDERED: fentaNYL citrate 0.05 MG/ML VIAL ONE (09:27)
[2023-02-08] MEDS ORDERED: MIDAZOLAM 2 MG/2 ML VIAL ONE (09:27)
[2023-02-08] MEDS ORDERED: MIDAZOLAM 2 MG/2 ML VIAL IV ONE (09:53)
== END 2023-02-08 11:10 | disposition home or self-care (01) ==
LOC: MDS 08:20 → MMU 08:21 → MDS 11:10
PROVIDERS: ATTEND Internal Medicine Gastroenterology
DX: R10.13 Epigastric pain (principal); K29.70 Gastritis, unspecified, without bleeding; K21.9 Gastro-esophageal reflux disease without esophagitis; F41.9 Anxiety disorder, unspecified; F32.A Depression, unspecified; K44.9 Diaphragmatic hernia without obstruction or gangrene; F17.210 Nicotine dependence, cigarettes, uncomplicated; Z88.1 Allergy status to other antibiotic agents; Z88.5 Allergy status to narcotic agent; Z88.8 Allergy status to other drugs, medicaments and biological substances; Z79.899 Other long term (current) drug therapy; Z90.49 Acquired absence of other specified parts of digestive tract
CPT/HCPCS: 36415; 43239; 86677; J2250; J3010